=== PATIENT | male | born 1945 | race Caucasian/White ===

== ENCOUNTER 2022-03-05 10:39 | Observation (INO) | payer OTHER ==
[2022-03-05 11:34] LABS: HEMATOCRIT 32.7 % (35.4-49); HEMOGLOBIN 11.3 GM/dL (11.7-16.9); MCH 30.3 pg (25.7-33.7); MCHC 34.6 g/dl (32.0-35.9); MEAN CELL VOLUME 87.8 fl (80-96); MEAN PLT VOLUME 9.8 fl (7.5-11.1); PLATELET COUNT 196 10^3/uL (134-434); RBC 3.73 M/mm3 (4.00-5.60); RDW 13.3 % (11.9-15.9); WHITE BLOOD COUNT 10.5 K/mm3 (4.0-10.0)
[2022-03-05 11:42] LABS: VENOUS O2 SATURATION 42.3 % (70-80); VENOUS PCO2 45.8 mmHg (38-52); VENOUS PH 7.29 (7.310-7.410)
[2022-03-05 11:58] LABS: CHLORIDE 100 mmol/L (98-107); SODIUM 135 mmol/L (136-145)
[2022-03-05 12:06] LABS: CALCIUM 9.4 mg/dL (8.5-10.1)
[2022-03-05 12:07] LABS: ALBUMIN 3.3 g/dl (3.4-5.0); ANION GAP 11 MMOL/L (8-16); BLOOD UREA NITROGEN 23.8 mg/dL (7-18); CO2 25 mmol/L (21-32); LIPASE 454 U/L (73-393)
[2022-03-05 12:09] LABS: CREATININE 1.7 mg/dL (0.55-1.3); SGPT/ALT 11 U/L (13-61)
[2022-03-05 12:10] LABS: SGOT/AST 12 U/L (15-37)
[2022-03-05 12:12] LABS: ALK PHOS 85 U/L (45-117); BILIRUBIN,TOTAL 0.4 mg/dL (0.2-1)
[2022-03-05 12:18] LABS: GLUCOSE,RANDOM 428 mg/dL (74-106)
[2022-03-05 12:32] LABS: ANISOCYTOSIS 2+; MACROCYTOSIS 0
[2022-03-05] MEDS ORDERED: SODIUM CHLORIDE 0.9% 500 ML INFUS.BAG IV ONE (13:00)
[2022-03-05] MEDS ORDERED: INSULIN REGULAR HUMAN 100 UNITS/ML *VIAL SQ ONE (16:00)
[2022-03-05] MEDS ORDERED: INSULIN REGULAR HUMAN 100 UNITS/ML *VIAL ONE (16:10)
[2022-03-05] MEDS ORDERED: DOCUSATE SODIUM 100 MG CAPSULE (FP) PO PRN (20:18)
[2022-03-05] MEDS ORDERED: SENNOSIDES 8.6MG TABLET (FP) PO PRN (20:19)
[2022-03-05] MEDS ORDERED: ONDANSETRON 4 MG/2 ML VIAL IVPUSH PRN (20:31)
[2022-03-05 21:46] LABS: EPI CELLS 4 /uL (0-25.1); HYALINE CASTS 0 /uL (0-3.1); URINE APPEARANCE CLEAR; URINE BACTERIA 8 /uL (0-1359); URINE BILIRUBIN NEGATIVE (NEGATIVE); URINE COLOR YELLOW; URINE GLUCOSE (UA) 3+ (NEGATIVE); URINE KETONE NEGATIVE (NEGATIVE); URINE LEUK ESTERASE NEGATIVE (NEGATIVE); URINE NITRITE NEGATIVE (NEGATIVE); URINE PROTEIN 3+ (NEGATIVE); URINE RBC 11 /uL (0-23.9); URINE UROBILINOGEN 0.2 mg/dL (0.2-1.0); URINE WBC 6 /uL (0-25.8)
[2022-03-05] MEDS ORDERED: POLYETHYLENE GLYCOL 3350 119 GM BTL PO SCH (22:00)
[2022-03-05] MEDS ORDERED: LABETALOL HCL 200 MG TABLET (FP) PO ONE (22:07)
[2022-03-05] MEDS ORDERED: HEPARIN NA (PORCINE) 5,000 UNITS/ML 1ML VIAL ONE (22:11)
[2022-03-05] MEDS ORDERED: LABETALOL HCL 100 MG TABLET (FP) ONE (22:11)
[2022-03-05] MEDS: HEPARIN NA (PORCINE) 5,000 UNITS/ML 1ML VIAL SQ SCH (22:24)
[2022-03-05] MEDS: INSULIN (LEVEMIR) 100 UNITS/ML UNITS SQ SCH (22:24)
[2022-03-05] MEDS: INSULIN SLIDING SCALE (NOVOLOG) 1 VIAL SQ SCH (22:24)
[2022-03-06 01:27] VITALS: BMI 28.5
[2022-03-06] MEDS: INSULIN (LEVEMIR) 100 UNITS/ML UNITS SQ SCH ×2 (06:38→22:32)
[2022-03-06] MEDS: HEPARIN NA (PORCINE) 5,000 UNITS/ML 1ML VIAL SQ SCH ×3 (06:38→22:31)
[2022-03-06] MEDS: INSULIN SLIDING SCALE (NOVOLOG) 1 VIAL SQ SCH ×4 (06:39→22:47)
[2022-03-06 08:04] LABS: HEMATOCRIT 28.5 % (35.4-49); MCH 30.4 pg (25.7-33.7); MEAN PLT VOLUME 10.1 fl (7.5-11.1); PLATELET COUNT 193 10^3/uL (134-434); RBC 3.27 M/mm3 (4.00-5.60); RDW 13.7 % (11.9-15.9)
[2022-03-06] MEDS ORDERED: SODIUM CHLORIDE 0.9% 500 ML INFUS.BAG IV ONE (08:29)
[2022-03-06 08:34] LABS: CALCIUM 8.6 mg/dL (8.5-10.1)
[2022-03-06 08:36] LABS: BLOOD UREA NITROGEN 25.7 mg/dL (7-18); MAGNESIUM 1.9 mg/dL (1.8-2.4)
[2022-03-06 08:38] LABS: CREATININE 1.7 mg/dL (0.55-1.3); PHOSPHOROUS 4.1 mg/dL (2.5-4.9)
[2022-03-06 08:40] LABS: BILIRUBIN,TOTAL 0.3 mg/dL (0.2-1)
[2022-03-06] MEDS: LABETALOL HCL 200 MG TABLET (FP) PO SCH ×2 (10:40→22:31)
[2022-03-07] MEDS: HEPARIN NA (PORCINE) 5,000 UNITS/ML 1ML VIAL SQ SCH ×3 (06:39→22:17)
[2022-03-07] MEDS: INSULIN (LEVEMIR) 100 UNITS/ML UNITS SQ SCH ×2 (06:41→22:17)
[2022-03-07 07:12] LABS: HEMATOCRIT 28.1 % (35.4-49); HEMOGLOBIN 9.8 GM/dL (11.7-16.9); MCH 30.6 pg (25.7-33.7); MCHC 34.9 g/dl (32.0-35.9); MEAN CELL VOLUME 87.4 fl (80-96); MEAN PLT VOLUME 9.9 fl (7.5-11.1); PLATELET COUNT 194 10^3/uL (134-434); RBC 3.21 M/mm3 (4.00-5.60); RDW 13.6 % (11.9-15.9); WHITE BLOOD COUNT 5.3 K/mm3 (4.0-10.0)
[2022-03-07 07:25] LABS: CALCIUM 8.7 mg/dL (8.5-10.1)
[2022-03-07 07:27] LABS: BLOOD UREA NITROGEN 27.7 mg/dL (7-18); MAGNESIUM 2.1 mg/dL (1.8-2.4)
[2022-03-07 07:29] LABS: CREATININE 2.1 mg/dL (0.55-1.3); PHOSPHOROUS 4.3 mg/dL (2.5-4.9)
[2022-03-07] MEDS: INSULIN SLIDING SCALE (NOVOLOG) 1 VIAL SQ SCH ×4 (07:50→22:19)
[2022-03-07] MEDS: LABETALOL HCL 200 MG TABLET (FP) PO SCH ×2 (09:10→22:18)
[2022-03-08] MEDS: HEPARIN NA (PORCINE) 5,000 UNITS/ML 1ML VIAL SQ SCH ×3 (06:23→21:50)
[2022-03-08] MEDS: INSULIN (LEVEMIR) 100 UNITS/ML UNITS SQ SCH ×2 (06:23→21:49)
[2022-03-08] MEDS: INSULIN SLIDING SCALE (NOVOLOG) 1 VIAL SQ SCH ×4 (06:24→21:49)
[2022-03-08] MEDS: LABETALOL HCL 200 MG TABLET (FP) PO SCH ×2 (09:05→21:48)
[2022-03-08 12:56] LABS: BASO % 0.7 % (0-2.0); EOS % 3.5 % (0-4.5); HEMOGLOBIN 9.9 GM/dL (11.7-16.9); LYMPH % 15.4 % (8-40); MCH 30.4 pg (25.7-33.7); MCHC 34.3 g/dl (32.0-35.9); MEAN CELL VOLUME 88.5 fl (80-96); MEAN PLT VOLUME 10.3 fl (7.5-11.1); NEUT % 71.4 % (42.8-82.8); PLATELET COUNT 170 10^3/uL (134-434); RBC 3.27 M/mm3 (4.00-5.60); RDW 13.6 % (11.9-15.9); WHITE BLOOD COUNT 4.3 K/mm3 (4.0-10.0)
[2022-03-08 13:16] LABS: CALCIUM 8.4 mg/dL (8.5-10.1)
[2022-03-08 13:17] LABS: ALBUMIN 2.9 g/dl (3.4-5.0); BLOOD UREA NITROGEN 31.8 mg/dL (7-18)
[2022-03-08 13:22] LABS: BILIRUBIN,TOTAL 0.2 mg/dL (0.2-1)
[2022-03-09] MEDS: INSULIN SLIDING SCALE (NOVOLOG) 1 VIAL SQ SCH ×4 (06:12→22:25)
[2022-03-09] MEDS: INSULIN (LEVEMIR) 100 UNITS/ML UNITS SQ SCH ×2 (06:12→22:24)
[2022-03-09] MEDS: HEPARIN NA (PORCINE) 5,000 UNITS/ML 1ML VIAL SQ SCH ×3 (06:13→22:21)
[2022-03-09 07:53] LABS: BASO % 0.8 % (0-2.0); EOS % 4.2 % (0-4.5); HEMATOCRIT 27.9 % (35.4-49); HEMOGLOBIN 9.6 GM/dL (11.7-16.9); LYMPH % 16.7 % (8-40); MCH 30.1 pg (25.7-33.7); MCHC 34.5 g/dl (32.0-35.9); MEAN CELL VOLUME 87.3 fl (80-96); MEAN PLT VOLUME 10.2 fl (7.5-11.1); MONO % 10.2 % (3.8-10.2); NEUT % 68.1 % (42.8-82.8); PLATELET COUNT 169 10^3/uL (134-434); RDW 13.3 % (11.9-15.9); WHITE BLOOD COUNT 4.4 K/mm3 (4.0-10.0)
[2022-03-09 08:19] LABS: ALBUMIN 2.8 g/dl (3.4-5.0); CALCIUM 8.4 mg/dL (8.5-10.1)
[2022-03-09 08:23] LABS: TOT PROT 5.9 g/dl (6.4-8.2)
[2022-03-09 08:24] LABS: BILIRUBIN,TOTAL 0.2 mg/dL (0.2-1)
[2022-03-09] MEDS: LABETALOL HCL 200 MG TABLET (FP) PO SCH ×2 (10:30→22:22)
[2022-03-10] MEDS: HEPARIN NA (PORCINE) 5,000 UNITS/ML 1ML VIAL SQ SCH ×2 (06:15→13:41)
[2022-03-10] MEDS: INSULIN (LEVEMIR) 100 UNITS/ML UNITS SQ SCH (06:16)
[2022-03-10] MEDS: INSULIN SLIDING SCALE (NOVOLOG) 1 VIAL SQ SCH ×3 (06:42→17:37)
[2022-03-10 07:59] VITALS: TEMP 98.2
[2022-03-10] MEDS: LABETALOL HCL 200 MG TABLET (FP) PO SCH (09:27)
[2022-03-10 15:34] VITALS: BP 138/63; PULSE 66
== END 2022-03-10 19:03 | disposition home or self-care (01) ==
LOC: JER 10:39 → JERBED 17:02 → J4W 03-06 00:30
PROVIDERS: ADMIT Internal Medicine
PROC: 3E023GC Introduction of Other Therapeutic Substance into Muscle, Percutaneous Approach (ICD-10-PCS; principal; 2022-03-05)
PROC: 3E013VG Introduction of Insulin into Subcutaneous Tissue, Percutaneous Approach (ICD-10-PCS; 2022-03-05)
PROC: 3E0337Z Introduction of Electrolytic and Water Balance Substance into Peripheral Vein, Percutaneous Approach (ICD-10-PCS; 2022-03-05)
DX: E13.21 Other specified diabetes mellitus with diabetic nephropathy (principal); N18.9 Chronic kidney disease, unspecified; D64.9 Anemia, unspecified; R80.9 Proteinuria, unspecified; W18.39XA Other fall on same level, initial encounter; Y93.89 Activity, other specified; Y92.002 Bathroom of unspecified non-institutional (private) residence as the place of occurrence of the external cause; S09.90XA Unspecified injury of head, initial encounter; R79.9 Abnormal finding of blood chemistry, unspecified; R11.2 Nausea with vomiting, unspecified; R55 Syncope and collapse; Z29.8 Encounter for other specified prophylactic measures
CPT/HCPCS: 36415; 70450-TC; 70551-TC; 71045-TC-FY; 72125-TC; 72170-TC-FY; 80048; 80053; 81003; 82010; 82803; 82962; 83036; 83605; 83690; 83735; 84100; 84484; 85025; 85027; 87086; 93005; 93010; 96372; 97116-GP; 97161-GP; 99285-25; C9803-CS; G0378; J1644; U0003; U0005

== ENCOUNTER 2022-04-29 11:14 | Inpatient (IN) | payer OTHER ==
[2022-04-29] MEDS ORDERED: ALBUTEROL SO4 2.5/IPRATROPIUM 0.5 INH SOL 3 ML VIAL.NEB. NEB ONE ×2 (12:04→12:07)
[2022-04-29] MEDS ORDERED: MAGNESIUM SULF 50% (8.12 MEQ/2 ML-1 GM VIAL) IVPB ONE (12:05)
[2022-04-29] MEDS ORDERED: MAGNESIUM SULFATE IN WATER 2 GM/50 ML IVPB IVPB ONE (12:07)
[2022-04-29 13:11] LABS: HEMATOCRIT 24.3 % (35.4-49); HEMOGLOBIN 8.4 GM/dL (11.7-16.9); MCH 29.1 pg (25.7-33.7); MCHC 34.6 g/dl (32.0-35.9); MEAN CELL VOLUME 84.3 fl (80-96); MEAN PLT VOLUME 9.4 fl (7.5-11.1); PLATELET COUNT 250 10^3/uL (134-434); RBC 2.89 M/mm3 (4.00-5.60); RDW 13.7 % (11.9-15.9); WHITE BLOOD COUNT 11.7 K/mm3 (4.0-10.0)
[2022-04-29 13:31] LABS: CALCIUM 8.7 mg/dL (8.5-10.1)
[2022-04-29 13:32] LABS: BLOOD UREA NITROGEN 41.2 mg/dL (7-18)
[2022-04-29 13:35] LABS: CREATININE 2.4 mg/dL (0.55-1.3)
[2022-04-29 13:37] LABS: BILIRUBIN,TOTAL 0.4 mg/dL (0.2-1); TOT PROT 6.8 g/dl (6.4-8.2)
[2022-04-29 13:45] LABS: ANISOCYTOSIS 0; HELMET CELLS 0; HOWELL-JOLLY BODIES 0; MACROCYTOSIS 0; OVALOCYTE 0; ROULEAU 0; SICKELED CELLS 0; TARGET CELLS 0; TEAR DROP CELLS 0; TOXIC GRANULATION 0
[2022-04-29] MEDS ORDERED: SODIUM CHLORIDE 500 ML IV STA (14:12)
[2022-04-29] MEDS ORDERED: AZITHROMYCIN IVPB 500 MG in DEXTROSE 5%-WATER - 250 ML IVPB ONE (14:43)
[2022-04-29] MEDS ORDERED: CEFTRIAXONE 1,000 MG in DEXTROSE 5%-WATER - 50 ML IVPB ONE (14:43)
[2022-04-29] MEDS ORDERED: AZITHROMYCIN IVPB 500 MG/250 ML BAG IVPB ONE (16:13)
[2022-04-29] MEDS ORDERED: CEFTRIAXONE 1 GM/50 ML BAG ONE (16:13)
[2022-04-29] MEDS ORDERED: methylPREDNISolone NA SUCC 40 MG/1 ML VIAL ONE (16:13)
[2022-04-29 16:25] LABS: EPI CELLS 7 /uL (0-25.1); HYALINE CASTS 2 /uL (0-3.1); PH,URINE 5.5 (5.0-8.0); URINE APPEARANCE CLEAR; URINE BACTERIA 11 /uL (0-1359); URINE BILIRUBIN NEGATIVE (NEGATIVE); URINE COLOR YELLOW; URINE GLUCOSE (UA) TRACE (NEGATIVE); URINE KETONE NEGATIVE (NEGATIVE); URINE LEUK ESTERASE NEGATIVE (NEGATIVE); URINE NITRITE NEGATIVE (NEGATIVE); URINE PROTEIN 3+ (NEGATIVE); URINE RBC 17 /uL (0-23.9); URINE UROBILINOGEN 0.2 mg/dL (0.2-1.0); URINE WBC 5 /uL (0-25.8)
[2022-04-29] MEDS: methylPREDNISolone NA SUCC 125 MG/2 ML VIAL IVPUSH SCH ×2 (16:27→21:42)
[2022-04-29] MEDS ORDERED: ALBUTEROL SO4 2.5/IPRATROPIUM 0.5 INH SOL 3 ML VIAL.NEB. NEB PRN (16:27)
[2022-04-29] MEDS: INSULIN SLIDING SCALE (NOVOLOG) 1 VIAL SQ SCH ×2 (18:12→21:41)
[2022-04-29] MEDS: LABETALOL HCL 200 MG TABLET (FP) PO SCH (21:42)
[2022-04-29] MEDS: HEPARIN NA (PORCINE) 5,000 UNITS/ML 1ML VIAL SQ SCH (21:42)
[2022-04-30 02:38] VITALS: BMI 30.1
[2022-04-30] MEDS: methylPREDNISolone NA SUCC 125 MG/2 ML VIAL IVPUSH SCH ×2 (03:15→11:17)
[2022-04-30] MEDS: HEPARIN NA (PORCINE) 5,000 UNITS/ML 1ML VIAL SQ SCH ×3 (05:53→23:47)
[2022-04-30] MEDS: INSULIN SLIDING SCALE (NOVOLOG) 1 VIAL SQ SCH ×4 (06:01→23:46)
[2022-04-30] MEDS ORDERED: DEXTROSE 5%-WATER - 50 ML IVPB ONE (10:55)
[2022-04-30] MEDS ORDERED: cefTRIAXone SODIUM 1 GM VIAL ONE (10:55)
[2022-04-30 10:58] LABS: HEMATOCRIT 25.9 % (35.4-49); MCH 29.4 pg (25.7-33.7); MCHC 34.8 g/dl (32.0-35.9); MEAN CELL VOLUME 84.5 fl (80-96); MEAN PLT VOLUME 9.6 fl (7.5-11.1); PLATELET COUNT 254 10^3/uL (134-434); RBC 3.06 M/mm3 (4.00-5.60); RDW 13.8 % (11.9-15.9); WHITE BLOOD COUNT 10.4 K/mm3 (4.0-10.0)
[2022-04-30 11:06] LABS: INR 1.21 (0.83-1.09)
[2022-04-30 11:07] LABS: ACTIVATED PTT 27.7 SECONDS (25.2-36.5)
[2022-04-30] MEDS: CEFTRIAXONE 1 GM in DEXTROSE 5%-WATER - 50 ML IVPB SCH (11:17)
[2022-04-30] MEDS: amLODIPine BESYLATE 10 MG TABLET (FP) PO SCH (11:19)
[2022-04-30] MEDS: LABETALOL HCL 200 MG TABLET (FP) PO SCH ×2 (11:19→23:47)
[2022-04-30 11:24] LABS: CALCIUM 8.5 mg/dL (8.5-10.1)
[2022-04-30 11:25] LABS: BLOOD UREA NITROGEN 48.7 mg/dL (7-18); MAGNESIUM 2.9 mg/dL (1.8-2.4)
[2022-04-30 11:26] LABS: PHOSPHOROUS 4.3 mg/dL (2.5-4.9)
[2022-04-30 11:27] LABS: CREATININE 2.4 mg/dL (0.55-1.3); TOT PROT 7.1 g/dl (6.4-8.2)
[2022-04-30 11:28] LABS: BILIRUBIN,TOTAL 0.3 mg/dL (0.2-1)
[2022-04-30 13:07] LABS: ANISOCYTOSIS 2+; MACROCYTOSIS 1+
[2022-04-30] MEDS: AZITHROMYCIN IVPB 500 MG/250 ML BAG IVPB SCH (13:42)
[2022-04-30] MEDS ORDERED: Insulin (LOG) Aspart 100 UNITS/ML VIAL SQ ONE (13:45)
[2022-04-30] MEDS ORDERED: INSULIN (NOVOLOG) ASPART 100 UNITS/ML 10ML VIAL SQ ONE (18:13)
[2022-04-30] MEDS: methylPREDNISolone NA SUCC 40 MG/1 ML VIAL IVPUSH SCH ×2 (18:29→23:47)
[2022-04-30] MEDS: INSULIN (LEVEMIR) 100 UNITS/ML UNITS SQ SCH (23:47)
[2022-05-01] MEDS ORDERED: INSULIN (NOVOLOG) ASPART 100 UNITS/ML 10ML VIAL SQ ONE (01:52)
[2022-05-01] MEDS: methylPREDNISolone NA SUCC 40 MG/1 ML VIAL IVPUSH SCH (06:38)
[2022-05-01] MEDS: INSULIN (NOVOLOG) ASPART 100 UNITS/ML 10ML VIAL SQ SCH ×3 (06:38→18:08)
[2022-05-01] MEDS: HEPARIN NA (PORCINE) 5,000 UNITS/ML 1ML VIAL SQ SCH ×3 (06:38→23:52)
[2022-05-01] MEDS: INSULIN SLIDING SCALE (NOVOLOG) 1 VIAL SQ SCH ×4 (06:38→23:52)
[2022-05-01] MEDS ORDERED: INSULIN SLIDING SCALE (NOVOLOG) 1 VIAL SQ ONE (07:19)
[2022-05-01] MEDS ORDERED: INSULIN (LEVEMIR) 100 UNITS/ML UNITS SQ ONE (07:19)
[2022-05-01 11:07] LABS: HEMATOCRIT 23.1 % (35.4-49); HEMOGLOBIN 7.8 GM/dL (11.7-16.9); MCH 28.7 pg (25.7-33.7); MCHC 33.7 g/dl (32.0-35.9); MEAN CELL VOLUME 85.2 fl (80-96); PLATELET COUNT 266 10^3/uL (134-434); RBC 2.71 M/mm3 (4.00-5.60); RDW 13.6 % (11.9-15.9); WHITE BLOOD COUNT 14.1 K/mm3 (4.0-10.0)
[2022-05-01 11:25] LABS: ALBUMIN 2.9 g/dl (3.4-5.0); BLOOD UREA NITROGEN 70.2 mg/dL (7-18)
[2022-05-01 11:27] LABS: CREATININE 2.8 mg/dL (0.55-1.3)
[2022-05-01 11:29] LABS: BILIRUBIN,TOTAL 0.6 mg/dL (0.2-1); TOT PROT 6.9 g/dl (6.4-8.2)
[2022-05-01 11:58] LABS: ANISOCYTOSIS 0; MACROCYTOSIS 0
[2022-05-01] MEDS ORDERED: DEXTROSE 5%-WATER - 50 ML IVPB ONE (12:23)
[2022-05-01] MEDS ORDERED: cefTRIAXone SODIUM 1 GM VIAL ONE (12:23)
[2022-05-01] MEDS: CEFTRIAXONE 1 GM in DEXTROSE 5%-WATER - 50 ML IVPB SCH (12:42)
[2022-05-01] MEDS: LABETALOL HCL 200 MG TABLET (FP) PO SCH ×2 (12:42→23:52)
[2022-05-01] MEDS: amLODIPine BESYLATE 10 MG TABLET (FP) PO SCH (12:42)
[2022-05-01] MEDS: AZITHROMYCIN IVPB 500 MG/250 ML BAG IVPB SCH (15:57)
[2022-05-01] MEDS: INSULIN (LEVEMIR) 100 UNITS/ML UNITS SQ SCH (23:52)
[2022-05-02] MEDS: HEPARIN NA (PORCINE) 5,000 UNITS/ML 1ML VIAL SQ SCH ×3 (06:31→21:28)
[2022-05-02] MEDS: INSULIN SLIDING SCALE (NOVOLOG) 1 VIAL SQ SCH ×4 (06:36→21:30)
[2022-05-02] MEDS: INSULIN (NOVOLOG) ASPART 100 UNITS/ML 10ML VIAL SQ SCH ×2 (06:40→17:55)
[2022-05-02 08:30] LABS: HEMATOCRIT 22.9 % (35.4-49); HEMOGLOBIN 7.7 GM/dL (11.7-16.9); MCH 28.3 pg (25.7-33.7); MCHC 33.6 g/dl (32.0-35.9); MEAN CELL VOLUME 84.4 fl (80-96); MEAN PLT VOLUME 9.4 fl (7.5-11.1); PLATELET COUNT 269 10^3/uL (134-434); RBC 2.71 M/mm3 (4.00-5.60); RDW 13.9 % (11.9-15.9); WHITE BLOOD COUNT 11.3 K/mm3 (4.0-10.0)
[2022-05-02 08:53] LABS: ALBUMIN 2.9 g/dl (3.4-5.0); CALCIUM 8.1 mg/dL (8.5-10.1)
[2022-05-02 08:55] LABS: ALBUMIN 2.9 g/dl (3.4-5.0); BLOOD UREA NITROGEN 77.7 mg/dL (7-18)
[2022-05-02 08:56] LABS: BILIRUBIN,DIRECT 0.1 mg/dL (0.0-0.2)
[2022-05-02 08:58] LABS: BILIRUBIN,TOTAL 0.2 mg/dL (0.2-1); TOT PROT 6.8 g/dl (6.4-8.2)
[2022-05-02 08:59] LABS: BILIRUBIN,TOTAL 0.2 mg/dL (0.2-1); TOT PROT 6.8 g/dl (6.4-8.2)
[2022-05-02] MEDS ORDERED: DEXTROSE 5%-WATER - 50 ML IVPB ONE (09:23)
[2022-05-02] MEDS ORDERED: cefTRIAXone SODIUM 1 GM VIAL ONE (09:23)
[2022-05-02] MEDS: CEFTRIAXONE 1 GM in DEXTROSE 5%-WATER - 50 ML IVPB SCH (09:58)
[2022-05-02] MEDS: LABETALOL HCL 200 MG TABLET (FP) PO SCH ×2 (09:59→21:27)
[2022-05-02] MEDS: amLODIPine BESYLATE 10 MG TABLET (FP) PO SCH (09:59)
[2022-05-02] MEDS ORDERED: predniSONE 20 MG TABLET (UD) PO SCH (10:00)
[2022-05-02] MEDS: AZITHROMYCIN IVPB 500 MG/250 ML BAG IVPB SCH (10:01)
[2022-05-02 10:28] LABS: ANISOCYTOSIS 0; HELMET CELLS 0; HOWELL-JOLLY BODIES 0; MACROCYTOSIS 0; OVALOCYTE 0; ROULEAU 0; SICKELED CELLS 0; TARGET CELLS 0; TEAR DROP CELLS 0; TOXIC GRANULATION 0
[2022-05-02] MEDS ORDERED: SODIUM CHLORIDE 0.45% 1,000 ML IV SCH (10:45)
[2022-05-02] MEDS: PANTOPRAZOLE 40 MG TABLET PO SCH (11:27)
[2022-05-02] MEDS: INSULIN (LEVEMIR) 100 UNITS/ML UNITS SQ SCH (21:29)
[2022-05-03] MEDS: HEPARIN NA (PORCINE) 5,000 UNITS/ML 1ML VIAL SQ SCH ×3 (06:14→22:55)
[2022-05-03] MEDS: INSULIN (NOVOLOG) ASPART 100 UNITS/ML 10ML VIAL SQ SCH ×2 (06:16→16:59)
[2022-05-03] MEDS: INSULIN SLIDING SCALE (NOVOLOG) 1 VIAL SQ SCH ×4 (06:17→22:54)
[2022-05-03 08:54] LABS: HEMATOCRIT 25.3 % (35.4-49); HEMOGLOBIN 8.6 GM/dL (11.7-16.9); MCH 28.6 pg (25.7-33.7); MCHC 33.8 g/dl (32.0-35.9); MEAN CELL VOLUME 84.7 fl (80-96); MEAN PLT VOLUME 9.5 fl (7.5-11.1); PLATELET COUNT 306 10^3/uL (134-434); RBC 2.99 M/mm3 (4.00-5.60); WHITE BLOOD COUNT 10.5 K/mm3 (4.0-10.0)
[2022-05-03 09:10] LABS: CALCIUM 8.6 mg/dL (8.5-10.1)
[2022-05-03 09:11] LABS: ALBUMIN 3.2 g/dl (3.4-5.0)
[2022-05-03 09:14] LABS: CREATININE 2.7 mg/dL (0.55-1.3)
[2022-05-03 09:16] LABS: BILIRUBIN,TOTAL 0.2 mg/dL (0.2-1)
[2022-05-03] MEDS ORDERED: cefTRIAXone SODIUM 1 GM VIAL ONE (09:47)
[2022-05-03] MEDS ORDERED: DEXTROSE 5%-WATER - 50 ML IVPB ONE (09:47)
[2022-05-03] MEDS: CEFTRIAXONE 1 GM in DEXTROSE 5%-WATER - 50 ML IVPB SCH (09:56)
[2022-05-03] MEDS: amLODIPine BESYLATE 10 MG TABLET (FP) PO SCH (09:57)
[2022-05-03] MEDS: LABETALOL HCL 200 MG TABLET (FP) PO SCH ×2 (09:57→22:48)
[2022-05-03] MEDS: predniSONE 20 MG TABLET (UD) PO SCH (09:57)
[2022-05-03] MEDS: PANTOPRAZOLE 40 MG TABLET PO SCH (09:58)
[2022-05-03] MEDS: AZITHROMYCIN IVPB 500 MG/250 ML BAG IVPB SCH (09:59)
[2022-05-03 10:37] LABS: ANISOCYTOSIS 0; HELMET CELLS 0; HOWELL-JOLLY BODIES 0; MACROCYTOSIS 0; OVALOCYTE 0; ROULEAU 0; SICKELED CELLS 0; TARGET CELLS 0; TEAR DROP CELLS 0; TOXIC GRANULATION 0
[2022-05-03] MEDS: INSULIN (LEVEMIR) 100 UNITS/ML UNITS SQ SCH (22:55)
[2022-05-04] MEDS: HEPARIN NA (PORCINE) 5,000 UNITS/ML 1ML VIAL SQ SCH ×3 (06:38→22:12)
[2022-05-04] MEDS: INSULIN SLIDING SCALE (NOVOLOG) 1 VIAL SQ SCH ×4 (06:40→22:11)
[2022-05-04] MEDS: INSULIN (NOVOLOG) ASPART 100 UNITS/ML 10ML VIAL SQ SCH ×2 (06:40→17:55)
[2022-05-04] MEDS ORDERED: DEXTROSE 5%-WATER - 50 ML IVPB ONE (10:32)
[2022-05-04] MEDS ORDERED: cefTRIAXone SODIUM 1 GM VIAL ONE (10:32)
[2022-05-04] MEDS: predniSONE 20 MG TABLET (UD) PO SCH (10:39)
[2022-05-04] MEDS: amLODIPine BESYLATE 10 MG TABLET (FP) PO SCH (10:39)
[2022-05-04] MEDS: LABETALOL HCL 200 MG TABLET (FP) PO SCH ×2 (10:39→22:11)
[2022-05-04] MEDS: CEFTRIAXONE 1 GM in DEXTROSE 5%-WATER - 50 ML IVPB SCH (10:39)
[2022-05-04] MEDS: PANTOPRAZOLE 40 MG TABLET PO SCH (10:39)
[2022-05-04] MEDS: INSULIN (LEVEMIR) 100 UNITS/ML UNITS SQ SCH (22:12)
[2022-05-05] MEDS: HEPARIN NA (PORCINE) 5,000 UNITS/ML 1ML VIAL SQ SCH ×3 (06:45→22:19)
[2022-05-05] MEDS: INSULIN (NOVOLOG) ASPART 100 UNITS/ML 10ML VIAL SQ SCH ×2 (06:46→17:12)
[2022-05-05] MEDS: INSULIN SLIDING SCALE (NOVOLOG) 1 VIAL SQ SCH ×4 (06:46→22:19)
[2022-05-05 09:29] LABS: HEMATOCRIT 25.6 % (35.4-49); HEMOGLOBIN 8.7 GM/dL (11.7-16.9); MCH 28.6 pg (25.7-33.7); MEAN CELL VOLUME 83.9 fl (80-96); MEAN PLT VOLUME 9.6 fl (7.5-11.1); PLATELET COUNT 366 10^3/uL (134-434); RBC 3.05 M/mm3 (4.00-5.60); RDW 14.2 % (11.9-15.9); WHITE BLOOD COUNT 11.5 K/mm3 (4.0-10.0)
[2022-05-05 10:01] LABS: BLOOD UREA NITROGEN 52.6 mg/dL (7-18)
[2022-05-05 10:04] LABS: CREATININE 2.2 mg/dL (0.55-1.3)
[2022-05-05] MEDS ORDERED: cefTRIAXone SODIUM 1 GM VIAL ONE (10:21)
[2022-05-05] MEDS ORDERED: DEXTROSE 5%-WATER - 50 ML IVPB ONE (10:21)
[2022-05-05 10:34] LABS: ANISOCYTOSIS 0; MACROCYTOSIS 0
[2022-05-05 10:35] LABS: HELMET CELLS 0; HOWELL-JOLLY BODIES 0; OVALOCYTE 0; ROULEAU 0; SICKELED CELLS 0; TARGET CELLS 0; TEAR DROP CELLS 0; TOXIC GRANULATION 0
[2022-05-05] MEDS: LABETALOL HCL 200 MG TABLET (FP) PO SCH ×2 (10:38→22:18)
[2022-05-05] MEDS: PANTOPRAZOLE 40 MG TABLET PO SCH (10:38)
[2022-05-05] MEDS: amLODIPine BESYLATE 10 MG TABLET (FP) PO SCH (10:39)
[2022-05-05] MEDS: predniSONE 20 MG TABLET (UD) PO SCH (10:39)
[2022-05-05] MEDS: CEFTRIAXONE 1 GM in DEXTROSE 5%-WATER - 50 ML IVPB SCH (10:39)
[2022-05-05] MEDS: INSULIN (LEVEMIR) 100 UNITS/ML UNITS SQ SCH (22:17)
[2022-05-06] MEDS: HEPARIN NA (PORCINE) 5,000 UNITS/ML 1ML VIAL SQ SCH ×3 (05:52→21:56)
[2022-05-06] MEDS: INSULIN SLIDING SCALE (NOVOLOG) 1 VIAL SQ SCH ×4 (06:40→21:57)
[2022-05-06] MEDS: INSULIN (NOVOLOG) ASPART 100 UNITS/ML 10ML VIAL SQ SCH ×2 (06:40→17:46)
[2022-05-06] MEDS ORDERED: cefTRIAXone SODIUM 1 GM VIAL ONE (09:26)
[2022-05-06] MEDS ORDERED: DEXTROSE 5%-WATER - 50 ML IVPB ONE (09:26)
[2022-05-06] MEDS: amLODIPine BESYLATE 10 MG TABLET (FP) PO SCH (09:28)
[2022-05-06] MEDS: LABETALOL HCL 200 MG TABLET (FP) PO SCH ×2 (09:28→21:56)
[2022-05-06] MEDS: CEFTRIAXONE 1 GM in DEXTROSE 5%-WATER - 50 ML IVPB SCH (09:28)
[2022-05-06] MEDS: PANTOPRAZOLE 40 MG TABLET PO SCH (09:28)
[2022-05-06] MEDS: predniSONE 20 MG TABLET (UD) PO SCH (09:28)
[2022-05-06] MEDS: INSULIN (LEVEMIR) 100 UNITS/ML UNITS SQ SCH (21:56)
[2022-05-07] MEDS: HEPARIN NA (PORCINE) 5,000 UNITS/ML 1ML VIAL SQ SCH ×2 (06:10→14:50)
[2022-05-07] MEDS: INSULIN SLIDING SCALE (NOVOLOG) 1 VIAL SQ SCH ×3 (06:11→17:56)
[2022-05-07 06:30] VITALS: TEMP 98.3
[2022-05-07] MEDS: INSULIN (NOVOLOG) ASPART 100 UNITS/ML 10ML VIAL SQ SCH ×2 (07:38→17:56)
[2022-05-07 09:01] LABS: BASO % 0.2 % (0-2.0); EOS % 1.5 % (0-4.5); HEMATOCRIT 26.1 % (35.4-49); LYMPH % 5.9 % (8-40); MCH 28.9 pg (25.7-33.7); MCHC 34.4 g/dl (32.0-35.9); MEAN CELL VOLUME 84.1 fl (80-96); MEAN PLT VOLUME 9.6 fl (7.5-11.1); MONO % 7.8 % (3.8-10.2); NEUT % 84.6 % (42.8-82.8); PLATELET COUNT 306 10^3/uL (134-434); RBC 3.11 M/mm3 (4.00-5.60); RDW 14.4 % (11.9-15.9); WHITE BLOOD COUNT 9.3 K/mm3 (4.0-10.0)
[2022-05-07] MEDS ORDERED: cefTRIAXone SODIUM 1 GM VIAL ONE (09:02)
[2022-05-07] MEDS ORDERED: DEXTROSE 5%-WATER - 50 ML IVPB ONE (09:02)
[2022-05-07 09:11] LABS: CALCIUM 8.9 mg/dL (8.5-10.1)
[2022-05-07 09:12] LABS: BLOOD UREA NITROGEN 46.2 mg/dL (7-18)
[2022-05-07 09:15] LABS: CREATININE 2.1 mg/dL (0.55-1.3)
[2022-05-07 09:16] LABS: TOT PROT 6.5 g/dl (6.4-8.2)
[2022-05-07 09:17] LABS: BILIRUBIN,TOTAL 0.2 mg/dL (0.2-1)
[2022-05-07] MEDS: LABETALOL HCL 200 MG TABLET (FP) PO SCH (09:30)
[2022-05-07] MEDS: CEFTRIAXONE 1 GM in DEXTROSE 5%-WATER - 50 ML IVPB SCH (09:30)
[2022-05-07] MEDS: predniSONE 20 MG TABLET (UD) PO SCH (09:30)
[2022-05-07] MEDS: PANTOPRAZOLE 40 MG TABLET PO SCH (09:30)
[2022-05-07] MEDS: amLODIPine BESYLATE 10 MG TABLET (FP) PO SCH (09:30)
[2022-05-07 13:59] VITALS: BP 100/58; PULSE 60
[2022-05-08] MEDS ORDERED: predniSONE 20 MG TABLET (UD) PO SCH (10:00)
== END 2022-05-07 17:44 | disposition home or self-care (01) | DRG 194 ==
LOC: JER 11:14 → JERBED 14:53 → J5S 18:38 → UNDODISIN 05-07 16:23
PROVIDERS: ADMIT Internal Medicine
DX: J18.9 Pneumonia, unspecified organism (principal); N17.9 Acute kidney failure, unspecified; J45.901 Unspecified asthma with (acute) exacerbation; J90 Pleural effusion, not elsewhere classified; I12.9 Hypertensive chronic kidney disease with stage 1 through stage 4 chronic kidney disease, or unspecified chronic kidney disease; E11.22 Type 2 diabetes mellitus with diabetic chronic kidney disease; N18.9 Chronic kidney disease, unspecified; D72.829 Elevated white blood cell count, unspecified; D64.9 Anemia, unspecified; E11.65 Type 2 diabetes mellitus with hyperglycemia; Z79.52 Long term (current) use of systemic steroids
CPT/HCPCS: 0241U-QW; 36415; 71045-TC-FY; 71250-TC; 80048; 80053; 80076; 81003; 82272; 82607; 82728; 82746; 82962; 83540; 83550; 83735; 84100; 84484; 85025; 85610; 85730; 86140; 87040; 87086; 87899; 93005; 93010; 93306-TC; 94761; 97116-GP; 97162-GP; 99285-25; J1644

== ENCOUNTER 2022-11-02 13:41 | Inpatient (IN) | payer OTHER ==
[2022-11-02] MEDS ORDERED: FAMOTIDINE 20 MG/50 ML IVPB 20 MG/50 ML MG IVPB ONE ×2 (14:36→15:20)
[2022-11-02] MEDS ORDERED: SODIUM CHLORIDE 0.9% 500 ML INFUS.BAG IV ONE (14:36)
[2022-11-02 15:54] LABS: BASO % 0.9 % (0-2.0); EOS % 2.1 % (0-4.5); HEMATOCRIT 24.3 % (35.4-49); HEMOGLOBIN 7.6 GM/dL (11.7-16.9); LYMPH % 2.3 % (8-40); MCH 24.9 pg (25.7-33.7); MCHC 31.4 g/dl (32.0-35.9); MEAN CELL VOLUME 79.3 fl (80-96); MEAN PLT VOLUME 9.4 fl (7.5-11.1); MONO % 6.4 % (3.8-10.2); NEUT % 88.3 % (42.8-82.8); PLATELET COUNT 385 10^3/uL (134-434); RBC 3.07 M/mm3 (4.00-5.60); RDW 15.6 % (11.9-15.9); WHITE BLOOD COUNT 19.7 K/mm3 (4.0-10.0)
[2022-11-02 15:55] LABS: VENOUS BASE EXCESS -4.3 mmol/L (-2-2); VENOUS O2 SATURATION 51.6 % (70-80); VENOUS PCO2 45.3 mmHg (38-52); VENOUS PH 7.3 (7.310-7.410)
[2022-11-02 16:17] LABS: CALCIUM 8.8 mg/dL (8.5-10.1)
[2022-11-02 16:18] LABS: ALBUMIN 2.4 g/dl (3.4-5.0); BLOOD UREA NITROGEN 63.8 mg/dL (7-18); MAGNESIUM 2.2 mg/dL (1.8-2.4)
[2022-11-02 16:20] LABS: CREATININE 3.2 mg/dL (0.55-1.3)
[2022-11-02 16:22] LABS: BILIRUBIN,TOTAL 0.3 mg/dL (0.2-1); TOT PROT 6.8 g/dl (6.4-8.2)
[2022-11-02] MEDS ORDERED: POTASSIUM CHLORIDE TABS 20 MEQ TABLET.ER (FP) PO ONE ×2 (16:30→16:49)
[2022-11-02] MEDS ORDERED: PIPERACILLIN/TAZOB 4.5 GM 4.5 GM in DEXTROSE 5%-WATER 100 ML IVPB ONE (18:46)
[2022-11-02] MEDS ORDERED: PIPERACILLIN/TAZOB 4.5 GM 4.5 GM/100 ML BAG IVPB ONE (18:51)
[2022-11-02 21:53] LABS: EPI CELLS 27 /uL (0-25.1); HYALINE CASTS 1 /uL (0-3.1); PH,URINE 5.5 (5.0-8.0); URINE APPEARANCE CLOUDY; URINE BACTERIA 6 /uL (0-1359); URINE BILIRUBIN NEGATIVE (NEGATIVE); URINE COLOR YELLOW; URINE GLUCOSE (UA) NEGATIVE (NEGATIVE); URINE KETONE NEGATIVE (NEGATIVE); URINE LEUK ESTERASE NEGATIVE (NEGATIVE); URINE NITRITE NEGATIVE (NEGATIVE); URINE PROTEIN 3+ (NEGATIVE); URINE RBC 8 /uL (0-23.9); URINE UROBILINOGEN 0.2 mg/dL (0.2-1.0); URINE WBC 22 /uL (0-25.8)
[2022-11-03 01:42] VITALS: BMI 28.8
[2022-11-03] MEDS ORDERED: LABETALOL HCL 5 MG/1 ML (100MG/20 ML VIAL) IVPUSH ONE (08:16)
[2022-11-03] MEDS ORDERED: SODIUM CHLORIDE 1,000 ML IV SCH ×3 (08:45→17:21)
[2022-11-03 09:16] LABS: HEMATOCRIT 24.8 % (35.4-49); HEMOGLOBIN 8.1 GM/dL (11.7-16.9); MCH 25.5 pg (25.7-33.7); MCHC 32.4 g/dl (32.0-35.9); MEAN CELL VOLUME 78.5 fl (80-96); MEAN PLT VOLUME 9.2 fl (7.5-11.1); PLATELET COUNT 406 10^3/uL (134-434); RBC 3.16 M/mm3 (4.00-5.60); RDW 16.2 % (11.9-15.9); WHITE BLOOD COUNT 19.6 K/mm3 (4.0-10.0)
[2022-11-03 09:23] LABS: INR 1.31 (0.83-1.09); PROTHROMBIN TIME (PATIENT) 15.1 SEC (9.7-13.0)
[2022-11-03 09:41] LABS: CALCIUM 8.6 mg/dL (8.5-10.1)
[2022-11-03 09:42] LABS: ALBUMIN 2.2 g/dl (3.4-5.0); BLOOD UREA NITROGEN 49.1 mg/dL (7-18); MAGNESIUM 2.1 mg/dL (1.8-2.4)
[2022-11-03 09:45] LABS: BILIRUBIN,DIRECT 0.1 mg/dL (0.0-0.2); CREATININE 2.7 mg/dL (0.55-1.3); PHOSPHOROUS 3.5 mg/dL (2.5-4.9)
[2022-11-03 09:47] LABS: BILIRUBIN,TOTAL 0.4 mg/dL (0.2-1); TOT PROT 6.3 g/dl (6.4-8.2)
[2022-11-03] MEDS ORDERED: FENTANYL CITRATE/PF 50 MCG/ML VIAL ONE (09:56)
[2022-11-03] MEDS ORDERED: MIDAZOLAM HCL 2 MG/2 ML SINGLE DOSE VIAL ONE (09:56)
[2022-11-03] MEDS ORDERED: PIPERACILLIN/TAZOB 2.25 GM 2.25 GM in DEXTROSE 5%-WATER - 50 ML IVPB SCH ×2 (10:00→18:00)
[2022-11-03] MEDS ORDERED: MUPIROCIN 2% TOPICAL OINTMENT FOR DECOLONIZATION NS SCH ×2 (10:00→22:00)
[2022-11-03] MEDS: INSULIN SLIDING SCALE (NOVOLOG) 1 VIAL SQ SCH ×3 (10:10→21:41)
[2022-11-03] MEDS ORDERED: ALBUTEROL SO4 HFA INHALER IH PRN (16:31)
[2022-11-03] MEDS: PIPERACILLIN/TAZOB 2.25 GM 2.25 GM in DEXTROSE 5%-WATER - 50 ML IVPB SCH (18:27)
[2022-11-03] MEDS: HEPARIN NA (PORCINE) 5,000 UNITS/ML 1ML VIAL SQ SCH (21:38)
[2022-11-03] MEDS ORDERED: CHLORHEXIDINE GLUCONATE 4% CLEANSER FOR DECOLONIZATION TP SCH ×2 (22:00)
[2022-11-04] MEDS: PIPERACILLIN/TAZOB 2.25 GM 2.25 GM in DEXTROSE 5%-WATER - 50 ML IVPB SCH ×3 (01:11→17:33)
[2022-11-04] MEDS: INSULIN SLIDING SCALE (NOVOLOG) 1 VIAL SQ SCH ×4 (06:27→22:20)
[2022-11-04] MEDS: HEPARIN NA (PORCINE) 5,000 UNITS/ML 1ML VIAL SQ SCH (09:56)
[2022-11-04 12:01] LABS: HEMATOCRIT 23.5 % (35.4-49); HEMOGLOBIN 7.5 GM/dL (11.7-16.9); MCH 25.2 pg (25.7-33.7); MCHC 31.7 g/dl (32.0-35.9); MEAN CELL VOLUME 79.4 fl (80-96); MEAN PLT VOLUME 8.9 fl (7.5-11.1); PLATELET COUNT 427 10^3/uL (134-434); RBC 2.96 M/mm3 (4.00-5.60); RDW 15.9 % (11.9-15.9); WHITE BLOOD COUNT 14.9 K/mm3 (4.0-10.0)
[2022-11-04 12:28] LABS: CALCIUM 8.6 mg/dL (8.5-10.1)
[2022-11-04 12:29] LABS: ALBUMIN 2.1 g/dl (3.4-5.0); BLOOD UREA NITROGEN 31.5 mg/dL (7-18); MAGNESIUM 2.1 mg/dL (1.8-2.4)
[2022-11-04 12:33] LABS: CREATININE 2.2 mg/dL (0.55-1.3); PHOSPHOROUS 3.3 mg/dL (2.5-4.9)
[2022-11-04 12:34] LABS: BILIRUBIN,TOTAL 0.4 mg/dL (0.2-1); TOT PROT 6.1 g/dl (6.4-8.2)
[2022-11-04] MEDS ORDERED: LACTATED RINGERS SOLUTION 1,000 ML/1,000 ML INFUS.BAG IV SCH (17:30)
[2022-11-04] MEDS: amLODIPine BESYLATE 5 MG TABLET (FP) PO SCH (17:31)
[2022-11-04] MEDS ORDERED: PIPERACILLIN/TAZOB 2.25 GM 2.25 GM in DEXTROSE 5%-WATER - 50 ML IVPB SCH (18:00)
[2022-11-04] MEDS: LABETALOL HCL 200 MG TABLET (FP) PO SCH (22:04)
[2022-11-05] MEDS: PIPERACILLIN/TAZOB 2.25 GM 2.25 GM in DEXTROSE 5%-WATER - 50 ML IVPB SCH ×3 (01:14→17:24)
[2022-11-05] MEDS: INSULIN SLIDING SCALE (NOVOLOG) 1 VIAL SQ SCH ×4 (07:11→21:37)
[2022-11-05] MEDS: LABETALOL HCL 200 MG TABLET (FP) PO SCH ×2 (09:09→21:33)
[2022-11-05] MEDS: amLODIPine BESYLATE 5 MG TABLET (FP) PO SCH (09:09)
[2022-11-05] MEDS ORDERED: BUPIVACAINE HCL/PF 0.5% (5MG/ML) 10 ML VIAL ONE (10:14)
[2022-11-05] MEDS ORDERED: LIDOCAINE HCL 1%, 10 MG/ML (20ML VIAL) ONE (10:14)
[2022-11-05] MEDS ORDERED: LIDOCAINE HCL/PF 1% SDV 5ML VIAL ONE (10:15)
[2022-11-05] MEDS ORDERED: FENTANYL CITRATE/PF 50 MCG/ML VIAL ONE ×3 (10:55→12:27)
[2022-11-05] MEDS ORDERED: LIDOCAINE HCL/PF 2% SDV 5ML VIAL ONE (10:55)
[2022-11-05] MEDS ORDERED: PROPOFOL 20 ML ONE (10:56)
[2022-11-05] MEDS ORDERED: ONDANSETRON 4 MG/2 ML VIAL ONE (11:33)
[2022-11-05] MEDS ORDERED: INSULIN (NOVOLOG) ASPART 100 UNITS/ML 10ML VIAL ONE (11:43)
[2022-11-05] MEDS ORDERED: ONDANSETRON 4 MG/2 ML VIAL IVPUSH PRN ×2 (11:54→13:25)
[2022-11-05] MEDS ORDERED: LACTATED RINGERS SOLUTION 1,000 ML IV SCH (12:00)
[2022-11-05] MEDS ORDERED: ALBUTEROL SO4 HFA INHALER IH PRN (13:25)
[2022-11-05] MEDS: LACTATED RINGERS SOLUTION 1,000 ML IV SCH (15:04)
[2022-11-05 16:31] LABS: BASO % 0.4 % (0-2.0); LYMPH % 4.1 % (8-40); MCH 24.6 pg (25.7-33.7); MCHC 30.6 g/dl (32.0-35.9); MEAN CELL VOLUME 80.2 fl (80-96); MEAN PLT VOLUME 9.1 fl (7.5-11.1); MONO % 6.2 % (3.8-10.2); NEUT % 88.3 % (42.8-82.8); PLATELET COUNT 397 10^3/uL (134-434); RBC 2.87 M/mm3 (4.00-5.60); RDW 15.6 % (11.9-15.9); WHITE BLOOD COUNT 11.7 K/mm3 (4.0-10.0)
[2022-11-05 16:53] LABS: CALCIUM 8.2 mg/dL (8.5-10.1)
[2022-11-05 16:54] LABS: BLOOD UREA NITROGEN 30.1 mg/dL (7-18); MAGNESIUM 1.9 mg/dL (1.8-2.4)
[2022-11-05 16:56] LABS: BILIRUBIN,DIRECT 0.1 mg/dL (0.0-0.2); CREATININE 2.3 mg/dL (0.55-1.3)
[2022-11-05 16:58] LABS: BILIRUBIN,TOTAL 0.4 mg/dL (0.2-1); PHOSPHOROUS 4.3 mg/dL (2.5-4.9); TOT PROT 5.8 g/dl (6.4-8.2)
[2022-11-05] MEDS ORDERED: PIPERACILLIN/TAZOB 2.25 GM 2.25 GM in DEXTROSE 5%-WATER - 50 ML IVPB SCH (18:00)
[2022-11-05] MEDS: HEPARIN NA (PORCINE) 5,000 UNITS/ML 1ML VIAL SQ SCH (21:33)
[2022-11-06] MEDS: PIPERACILLIN/TAZOB 2.25 GM 2.25 GM in DEXTROSE 5%-WATER - 50 ML IVPB SCH ×3 (01:19→18:31)
[2022-11-06] MEDS: INSULIN SLIDING SCALE (NOVOLOG) 1 VIAL SQ SCH ×3 (06:11→17:43)
[2022-11-06] MEDS: LACTATED RINGERS SOLUTION 1,000 ML IV SCH ×2 (06:22→17:43)
[2022-11-06] MEDS: HEPARIN NA (PORCINE) 5,000 UNITS/ML 1ML VIAL SQ SCH (10:38)
[2022-11-06] MEDS: LABETALOL HCL 200 MG TABLET (FP) PO SCH (10:38)
[2022-11-06] MEDS: amLODIPine BESYLATE 5 MG TABLET (FP) PO SCH (10:39)
[2022-11-06 11:33] LABS: HEMATOCRIT 21.5 % (35.4-49); MCH 25.4 pg (25.7-33.7); MCHC 31.9 g/dl (32.0-35.9); MEAN CELL VOLUME 79.8 fl (80-96); MEAN PLT VOLUME 9.1 fl (7.5-11.1); PLATELET COUNT 368 10^3/uL (134-434); RBC 2.69 M/mm3 (4.00-5.60); WHITE BLOOD COUNT 9.7 K/mm3 (4.0-10.0)
[2022-11-06 11:44] LABS: HEMOGLOBIN 6.8 GM/dL (11.7-16.9)
[2022-11-06 12:04] LABS: BLOOD UREA NITROGEN 29.1 mg/dL (7-18)
[2022-11-06 12:07] LABS: CREATININE 2.5 mg/dL (0.55-1.3)
[2022-11-06 12:09] LABS: BILIRUBIN,TOTAL 0.2 mg/dL (0.2-1); TOT PROT 5.6 g/dl (6.4-8.2)
[2022-11-07] MEDS: LABETALOL HCL 200 MG TABLET (FP) PO SCH ×2 (00:26→10:51)
[2022-11-07] MEDS: HEPARIN NA (PORCINE) 5,000 UNITS/ML 1ML VIAL SQ SCH ×3 (00:26→22:05)
[2022-11-07] MEDS: INSULIN SLIDING SCALE (NOVOLOG) 1 VIAL SQ SCH ×5 (00:31→22:57)
[2022-11-07] MEDS: PIPERACILLIN/TAZOB 2.25 GM 2.25 GM in DEXTROSE 5%-WATER - 50 ML IVPB SCH ×2 (01:38→10:52)
[2022-11-07 09:45] LABS: HEMATOCRIT 26.7 % (35.4-49); HEMOGLOBIN 8.8 GM/dL (11.7-16.9); MCH 26.2 pg (25.7-33.7); MCHC 32.9 g/dl (32.0-35.9); MEAN CELL VOLUME 79.7 fl (80-96); MEAN PLT VOLUME 8.8 fl (7.5-11.1); PLATELET COUNT 300 10^3/uL (134-434); RBC 3.35 M/mm3 (4.00-5.60); RDW 15.6 % (11.9-15.9); WHITE BLOOD COUNT 7.4 K/mm3 (4.0-10.0)
[2022-11-07 10:17] LABS: CALCIUM 8.1 mg/dL (8.5-10.1)
[2022-11-07 10:18] LABS: ALBUMIN 2.1 g/dl (3.4-5.0)
[2022-11-07 10:19] LABS: CREATININE 2.3 mg/dL (0.55-1.3)
[2022-11-07 10:21] LABS: BILIRUBIN,TOTAL 0.8 mg/dL (0.2-1); TOT PROT 5.8 g/dl (6.4-8.2)
[2022-11-07] MEDS: amLODIPine BESYLATE 5 MG TABLET (FP) PO SCH (10:51)
[2022-11-07] MEDS: LACTATED RINGERS SOLUTION 1,000 ML IV SCH ×2 (11:30→16:21)
[2022-11-07] MEDS: CEFTRIAXONE 2 GM in DEXTROSE 5%-WATER 100 ML IVPB SCH (17:06)
[2022-11-07] MEDS: LABETALOL HCL 100 MG TABLET (FP) PO SCH (22:05)
[2022-11-08] MEDS: INSULIN SLIDING SCALE (NOVOLOG) 1 VIAL SQ SCH ×4 (06:46→22:17)
[2022-11-08] MEDS: CEFTRIAXONE 2 GM in DEXTROSE 5%-WATER 100 ML IVPB SCH (09:45)
[2022-11-08] MEDS: LABETALOL HCL 100 MG TABLET (FP) PO SCH ×2 (09:46→22:19)
[2022-11-08] MEDS: HEPARIN NA (PORCINE) 5,000 UNITS/ML 1ML VIAL SQ SCH ×2 (09:46→22:19)
[2022-11-08] MEDS: amLODIPine BESYLATE 5 MG TABLET (FP) PO SCH (09:46)
[2022-11-08] MEDS: LACTATED RINGERS SOLUTION 1,000 ML IV SCH ×2 (11:02→17:02)
[2022-11-08 11:10] LABS: CALCIUM 8.2 mg/dL (8.5-10.1)
[2022-11-08 11:11] LABS: ALBUMIN 2.1 g/dl (3.4-5.0); BLOOD UREA NITROGEN 23.9 mg/dL (7-18)
[2022-11-08 11:14] LABS: CREATININE 2.1 mg/dL (0.55-1.3)
[2022-11-08 11:15] LABS: TOT PROT 5.7 g/dl (6.4-8.2)
[2022-11-08 11:16] LABS: BILIRUBIN,TOTAL 0.3 mg/dL (0.2-1)
[2022-11-08] MEDS ORDERED: BISACODYL 5 MG TABLET.DR (FP) PO ONE (18:00)
[2022-11-09] MEDS: INSULIN SLIDING SCALE (NOVOLOG) 1 VIAL SQ SCH ×4 (06:11→21:33)
[2022-11-09] MEDS: LABETALOL HCL 100 MG TABLET (FP) PO SCH ×2 (10:10→21:34)
[2022-11-09] MEDS: HEPARIN NA (PORCINE) 5,000 UNITS/ML 1ML VIAL SQ SCH (10:11)
[2022-11-09] MEDS: CEFTRIAXONE 2 GM in DEXTROSE 5%-WATER 100 ML IVPB SCH (10:11)
[2022-11-09] MEDS: amLODIPine BESYLATE 5 MG TABLET (FP) PO SCH (10:12)
[2022-11-09 11:18] LABS: BLOOD UREA NITROGEN 19.5 mg/dL (7-18)
[2022-11-09 11:20] LABS: CALCIUM 8.3 mg/dL (8.5-10.1)
[2022-11-09 11:21] LABS: CREATININE 1.9 mg/dL (0.55-1.3)
[2022-11-09] MEDS ORDERED: BISACODYL 5 MG TABLET.DR (FP) PO ONE (14:00)
[2022-11-09] MEDS ORDERED: PEG 3350/NA SULF BICARB CL/KCL 4000 ML SOLN.RECON PO ONE (14:00)
[2022-11-09] MEDS: LACTATED RINGERS SOLUTION 1,000 ML IV SCH (16:41)
[2022-11-10] MEDS: INSULIN SLIDING SCALE (NOVOLOG) 1 VIAL SQ SCH ×4 (06:15→21:55)
[2022-11-10] MEDS: LABETALOL HCL 100 MG TABLET (FP) PO SCH ×2 (09:47→21:55)
[2022-11-10] MEDS: amLODIPine BESYLATE 5 MG TABLET (FP) PO SCH (09:48)
[2022-11-10] MEDS: CEFTRIAXONE 2 GM in DEXTROSE 5%-WATER 100 ML IVPB SCH (09:49)
[2022-11-10] MEDS ORDERED: INSULIN (NOVOLOG) ASPART 100 UNITS/ML 10ML VIAL ONE (16:28)
[2022-11-11 03:03] VITALS: RESP 18
[2022-11-11] MEDS: INSULIN SLIDING SCALE (NOVOLOG) 1 VIAL SQ SCH ×4 (07:16→21:45)
[2022-11-11] MEDS: amLODIPine BESYLATE 5 MG TABLET (FP) PO SCH (09:41)
[2022-11-11] MEDS: LABETALOL HCL 100 MG TABLET (FP) PO SCH ×2 (09:42→21:46)
[2022-11-11] MEDS: CEFTRIAXONE 2 GM in DEXTROSE 5%-WATER 100 ML IVPB SCH (09:42)
[2022-11-11 10:18] LABS: CALCIUM 8.5 mg/dL (8.5-10.1)
[2022-11-11 10:19] LABS: BLOOD UREA NITROGEN 10.8 mg/dL (7-18)
[2022-11-11 10:22] LABS: CREATININE 1.7 mg/dL (0.55-1.3)
[2022-11-11 11:07] LABS: HEMATOCRIT 33.5 % (35.4-49); HEMOGLOBIN 10.6 GM/dL (11.7-16.9); MCH 25.8 pg (25.7-33.7); MCHC 31.8 g/dl (32.0-35.9); RBC 4.13 M/mm3 (4.00-5.60); RDW 16.5 % (11.9-15.9)
[2022-11-11 11:10] LABS: WHITE BLOOD COUNT 7.6 K/mm3 (4.0-10.0)
[2022-11-11 11:12] LABS: MEAN PLT VOLUME 9.7 fl (7.5-11.1); PLATELET COUNT 251 10^3/uL (134-434)
[2022-11-11] MEDS ORDERED: POTASSIUM CHLORIDE TABS 20 MEQ TABLET.ER (FP) PO ONE (11:35)
[2022-11-11 13:58] LABS: MAGNESIUM 1.7 mg/dL (1.8-2.4)
[2022-11-11 14:01] LABS: PHOSPHOROUS 2.6 mg/dL (2.5-4.9)
[2022-11-11] MEDS ORDERED: MAGNESIUM SULF 50% (8.12 MEQ/2 ML-1 GM VIAL) IVPB ONE ×2 (14:49→17:30)
[2022-11-11 16:16] LABS: ALBUMIN 2.4 g/dl (3.4-5.0)
[2022-11-11 16:21] LABS: TOT PROT 6.2 g/dl (6.4-8.2)
[2022-11-11 16:22] LABS: BILIRUBIN,DIRECT 0.1 mg/dL (0.0-0.2)
[2022-11-11 16:23] LABS: BILIRUBIN,TOTAL 0.2 mg/dL (0.2-1)
[2022-11-12] MEDS: INSULIN SLIDING SCALE (NOVOLOG) 1 VIAL SQ SCH ×4 (06:40→22:19)
[2022-11-12] MEDS ORDERED: INSULIN (NOVOLOG) ASPART 100 UNITS/ML 10ML VIAL ONE ×3 (06:54→18:59)
[2022-11-12] MEDS: amLODIPine BESYLATE 5 MG TABLET (FP) PO SCH (09:45)
[2022-11-12] MEDS: LABETALOL HCL 100 MG TABLET (FP) PO SCH ×2 (09:45→22:18)
[2022-11-12] MEDS: CEFTRIAXONE 2 GM in DEXTROSE 5%-WATER 100 ML IVPB SCH (09:46)
[2022-11-12 12:02] LABS: CALCIUM 8.1 mg/dL (8.5-10.1)
[2022-11-12 12:03] LABS: BLOOD UREA NITROGEN 10.3 mg/dL (7-18); MAGNESIUM 1.8 mg/dL (1.8-2.4)
[2022-11-12 12:06] LABS: CREATININE 1.8 mg/dL (0.55-1.3); PHOSPHOROUS 2.5 mg/dL (2.5-4.9)
[2022-11-12] MEDS: HEPARIN NA (PORCINE) 5,000 UNITS/ML 1ML VIAL SQ SCH (22:18)
[2022-11-13] MEDS: INSULIN SLIDING SCALE (NOVOLOG) 1 VIAL SQ SCH ×4 (06:19→21:17)
[2022-11-13] MEDS: LABETALOL HCL 100 MG TABLET (FP) PO SCH ×2 (09:18→21:16)
[2022-11-13] MEDS: amLODIPine BESYLATE 5 MG TABLET (FP) PO SCH (09:18)
[2022-11-13] MEDS: HEPARIN NA (PORCINE) 5,000 UNITS/ML 1ML VIAL SQ SCH ×2 (09:18→21:16)
[2022-11-13] MEDS: CEFTRIAXONE 2 GM in DEXTROSE 5%-WATER 100 ML IVPB SCH (09:19)
[2022-11-13 11:36] LABS: HEMATOCRIT 28.7 % (35.4-49); HEMOGLOBIN 9.5 GM/dL (11.7-16.9); MCH 26.7 pg (25.7-33.7); MCHC 33.1 g/dl (32.0-35.9); MEAN CELL VOLUME 80.8 fl (80-96); MEAN PLT VOLUME 9.5 fl (7.5-11.1); PLATELET COUNT 193 10^3/uL (134-434); RBC 3.56 M/mm3 (4.00-5.60); RDW 16.4 % (11.9-15.9); WHITE BLOOD COUNT 4.1 K/mm3 (4.0-10.0)
[2022-11-13 12:12] LABS: CALCIUM 8.1 mg/dL (8.5-10.1)
[2022-11-13 12:16] LABS: CREATININE 1.7 mg/dL (0.55-1.3)
[2022-11-13 12:21] LABS: BLOOD UREA NITROGEN 6.9 mg/dL (7-18)
[2022-11-13] MEDS ORDERED: POTASSIUM CHLORIDE TABS 20 MEQ TABLET.ER (FP) PO ONE (15:08)
[2022-11-13] MEDS ORDERED: INSULIN (NOVOLOG) ASPART 100 UNITS/ML 10ML VIAL ONE (21:04)
[2022-11-13 21:16] VITALS: BP 158/72; PULSE 72; TEMP 98.3
== END 2022-11-13 21:15 | disposition short-term general hospital (02) | DRG 871 ==
LOC: JER 13:41 → JERBED 16:31 → JICU 11-03 00:48 → J6S 11-03 16:47
PROVIDERS: ADMIT Internal Medicine Pulmonary Disease; ATTEND Internal Medicine
PROC: 0X940ZX Drainage of Right Axilla, Open Approach, Diagnostic (ICD-10-PCS; 2022-11-07)
PROC: 0DBL8ZX Excision of Transverse Colon, Via Natural or Artificial Opening Endoscopic, Diagnostic (ICD-10-PCS; 2022-11-10)
PROC: 0DBN8ZX Excision of Sigmoid Colon, Via Natural or Artificial Opening Endoscopic, Diagnostic (ICD-10-PCS; 2022-11-10)
PROC: 0DBM8ZX Excision of Descending Colon, Via Natural or Artificial Opening Endoscopic, Diagnostic (ICD-10-PCS; 2022-11-10)
PROC: 0DBH8ZX Excision of Cecum, Via Natural or Artificial Opening Endoscopic, Diagnostic (ICD-10-PCS; 2022-11-10)
PROC: 0T9B30Z Drainage of Bladder with Drainage Device, Percutaneous Approach (ICD-10-PCS; 2022-11-10)
PROC: 0DBK8ZX Excision of Ascending Colon, Via Natural or Artificial Opening Endoscopic, Diagnostic (ICD-10-PCS; principal; 2022-11-10 13:30)
DX: A41.89 Other specified sepsis (principal); K65.9 Peritonitis, unspecified; K82.A2 Perforation of gallbladder in cholecystitis; L02.411 Cutaneous abscess of right axilla; N17.9 Acute kidney failure, unspecified; C20 Malignant neoplasm of rectum; J90 Pleural effusion, not elsewhere classified; J98.11 Atelectasis; K80.12 Calculus of gallbladder with acute and chronic cholecystitis without obstruction; E78.5 Hyperlipidemia, unspecified; R59.9 Enlarged lymph nodes, unspecified; F10.10 Alcohol abuse, uncomplicated; D50.9 Iron deficiency anemia, unspecified; I12.9 Hypertensive chronic kidney disease with stage 1 through stage 4 chronic kidney disease, or unspecified chronic kidney disease; E11.22 Type 2 diabetes mellitus with diabetic chronic kidney disease; N18.9 Chronic kidney disease, unspecified; D72.829 Elevated white blood cell count, unspecified; L72.3 Sebaceous cyst; R80.9 Proteinuria, unspecified; E86.0 Dehydration; D64.9 Anemia, unspecified; E87.6 Hypokalemia; B95.62 Methicillin resistant Staphylococcus aureus infection as the cause of diseases classified elsewhere
CPT/HCPCS: 0241U-QW; 36415; 36430; 47490; 71045-TC-FY; 74176-TC; 76705-TC; 76882-TC-RT-FY; 78226-TC; 80048; 80053; 80076; 81003; 82010; 82248; 82378; 82803; 82962; 82977; 83036; 83605; 83690; 83735; 84100; 84484; 85025; 85027; 85610; 85730; 86850; 86900; 86901; 86922; 87070; 87075; 87086; 87186; 87205; 88305-TC; 93005; 93010; 94760; 99285-25; A9537; C9803-CS; J1644; P9058; U0003; U0005

== ENCOUNTER 2023-01-19 04:15 | Day surgery (SDC) | payer OTHER ==
[2023-01-18 10:49] VITALS: BMI 28.2
[~2023-01-19 04:15] MED LIST: BUPIVACAINE HCL/PF 0.25% (2.5MG/ML) 10 ML VIAL IJ ONE
[2023-01-19] MEDS ORDERED: BUPIVACAINE HCL/PF 0.25% (2.5MG/ML) 10 ML VIAL ONE (07:23)
[2023-01-19] MEDS ORDERED: HEPARIN NA (PORCINE) 5,000 UNITS/ML 1ML VIAL ONE (07:44)
[2023-01-19] MEDS ORDERED: SUCCINYLCHOLINE CHLORIDE 200 MG/10 ML SYRINGE ONE (07:58)
[2023-01-19] MEDS ORDERED: PROPOFOL 40 ML ONE (07:58)
[2023-01-19] MEDS ORDERED: MIDAZOLAM HCL 2 MG/2 ML SINGLE DOSE VIAL ONE (07:58)
[2023-01-19] MEDS ORDERED: ROCURONIUM BROMIDE 50 MG/5 ML SYRINGE ONE (07:58)
[2023-01-19] MEDS ORDERED: cefOXitin SODIUM 2 GM VIAL (RESTRICTED TO ID) IVPB ONE ×2 (07:59→08:20)
[2023-01-19] MEDS ORDERED: BUPIVACAINE HCL/PF 0.25% (2.5MG/ML) 10 ML VIAL IJ ONE (08:28)
[2023-01-19] MEDS ORDERED: ONDANSETRON 4 MG/2 ML VIAL ONE ×2 (08:42→09:21)
[2023-01-19] MEDS ORDERED: DEXAMETHASONE SOD PHOSPHATE 4 MG/1 ML VIAL ONE (08:42)
[2023-01-19] MEDS ORDERED: NEOSTIGMINE METHYLSULFATE 0.5 MG/1 ML - 10 ML MDV ONE (09:21)
[2023-01-19] MEDS ORDERED: GLYCOPYRROLATE 0.2 MG/1 ML VIAL ONE (09:21)
[2023-01-19] MEDS ORDERED: ENALAPRILAT DIHYDRATE 2.5 MG/2 ML VIAL IVPB ONE (09:41)
[2023-01-19] MEDS ORDERED: ONDANSETRON 4 MG/2 ML VIAL IVPUSH PRN (09:47)
[2023-01-19] MEDS ORDERED: oxyCODONE HCL 5 MG TABLET PO PRN (09:47)
[2023-01-19] MEDS ORDERED: SODIUM CHLORIDE 1,000 ML IV SCH (10:00)
[2023-01-19 12:13] VITALS: RESP 18
[2023-01-19 12:22] VITALS: PULSE 60
[2023-01-19 15:30] VITALS: BP 155/54; TEMP 97
== END 2023-01-19 15:31 | disposition home or self-care (01) ==
LOC: JASU-SURG 04:15
PROVIDERS: ATTEND Surgery
PROC: 0W9F30Z Drainage of Abdominal Wall with Drainage Device, Percutaneous Approach (ICD-10-PCS; 2023-01-19)
PROC: 0FT44ZZ Resection of Gallbladder, Percutaneous Endoscopic Approach (ICD-10-PCS; principal; 2023-01-19 08:00)
DX: K81.0 Acute cholecystitis (principal); K82.A1 Gangrene of gallbladder in cholecystitis; K82.A2 Perforation of gallbladder in cholecystitis
CPT/HCPCS: 82962; 87070; 87205; 88304-TC; 88342-TC; 94760; J1644

== ENCOUNTER 2023-04-01 09:32 | Inpatient (IN) | payer OTHER ==
[2023-04-01 10:15] VITALS: BMI 28.2
[2023-04-01 11:37] LABS: BASO % 0.5 % (0-2.0); EOS % 0.6 % (0-4.5); HEMATOCRIT 21.7 % (35.4-49); HEMOGLOBIN 7.6 GM/dL (11.7-16.9); MCH 29.7 pg (25.7-33.7); MCHC 34.9 g/dl (32.0-35.9); MEAN CELL VOLUME 84.9 fl (80-96); MEAN PLT VOLUME 10.3 fl (7.5-11.1); NEUT % 86.9 % (42.8-82.8); PLATELET COUNT 173 10^3/uL (134-434); RBC 2.56 M/mm3 (4.00-5.60); RDW 14.8 % (11.9-15.9); WHITE BLOOD COUNT 10.6 K/mm3 (4.0-10.0)
[2023-04-01 11:56] LABS: POTASSIUM 5.3 mmol/L (3.5-5.1)
[2023-04-01 11:58] LABS: ALBUMIN 3.1 g/dl (3.4-5.0); BLOOD UREA NITROGEN 38.4 mg/dL (7-18); CALCIUM 8.7 mg/dL (8.5-10.1)
[2023-04-01 12:01] LABS: CREATININE 2.7 mg/dL (0.55-1.3); MAGNESIUM 2.2 mg/dL (1.8-2.4)
[2023-04-01 12:03] LABS: BILIRUBIN,TOTAL 0.6 mg/dL (0.2-1); TOT PROT 7.1 g/dl (6.4-8.2)
[2023-04-01 12:06] LABS: N-TERMINAL BNP 4475.8 pg/ml (5-450)
[2023-04-01] MEDS ORDERED: ASPIRIN 81 MG CHEWABLE TABLETS PO ONE (12:24)
[2023-04-01] MEDS ORDERED: ASPIRIN 81 MG CHEWABLE TABLETS ONE (12:32)
[2023-04-01] MEDS ORDERED: FUROSEMIDE 40 MG/4 ML INJECTABLE VIAL IVPUSH SCH (14:00)
[2023-04-01] MEDS ORDERED: FUROSEMIDE 40 MG/4 ML INJECTABLE VIAL ONE (16:06)
[2023-04-01] MEDS ORDERED: HEPARIN NA (PORCINE) 5,000 UNITS/ML 1ML VIAL ONE (16:06)
[2023-04-01] MEDS: HEPARIN NA (PORCINE) 5,000 UNITS/ML 1ML VIAL SQ SCH ×2 (16:19→21:47)
[2023-04-01] MEDS: INSULIN SLIDING SCALE (NOVOLOG) 1 VIAL SQ SCH ×2 (18:45→21:52)
[2023-04-01] MEDS ORDERED: ALBUTEROL SO4 0.083% IH SOL 2.5 MG/3 ML VIAL.NEB. NEB PRN (20:35)
[2023-04-01] MEDS ORDERED: FUROSEMIDE 40 MG/4 ML INJECTABLE VIAL IVPUSH ONE ×2 (20:35)
[2023-04-01 21:02] LABS: POTASSIUM 4.5 mmol/L (3.5-5.1)
[2023-04-01 21:03] LABS: CALCIUM 9.1 mg/dL (8.5-10.1)
[2023-04-01 21:07] LABS: CREATININE 2.8 mg/dL (0.55-1.3)
[2023-04-01] MEDS: ATORVASTATIN CA 20 MG TABLET (FP) PO SCH (21:46)
[2023-04-01] MEDS: LABETALOL HCL 200 MG TABLET (FP) PO SCH (21:46)
[2023-04-01] MEDS: INSULIN (LEVEMIR) 100 UNITS/ML UNITS SQ SCH (21:49)
[2023-04-02] MEDS ORDERED: HALOPERIDOL LACTATE 5 MG/ML IM ONE (03:09)
[2023-04-02] MEDS: INSULIN SLIDING SCALE (NOVOLOG) 1 VIAL SQ SCH ×4 (06:03→21:14)
[2023-04-02] MEDS: HEPARIN NA (PORCINE) 5,000 UNITS/ML 1ML VIAL SQ SCH ×3 (06:06→21:15)
[2023-04-02 06:41] LABS: BASO % 0.5 % (0-2.0); EOS % 1.7 % (0-4.5); HEMATOCRIT 21.6 % (35.4-49); HEMOGLOBIN 7.5 GM/dL (11.7-16.9); LYMPH % 3.5 % (8-40); MCH 29.1 pg (25.7-33.7); MCHC 34.6 g/dl (32.0-35.9); MEAN PLT VOLUME 9.7 fl (7.5-11.1); MONO % 9.5 % (3.8-10.2); NEUT % 84.8 % (42.8-82.8); PLATELET COUNT 209 10^3/uL (134-434); RBC 2.57 M/mm3 (4.00-5.60); RDW 14.7 % (11.9-15.9); WHITE BLOOD COUNT 11.1 K/mm3 (4.0-10.0)
[2023-04-02 06:55] LABS: POTASSIUM 3.8 mmol/L (3.5-5.1)
[2023-04-02 06:59] LABS: ALBUMIN 2.9 g/dl (3.4-5.0); BLOOD UREA NITROGEN 37.4 mg/dL (7-18)
[2023-04-02 07:02] LABS: CREATININE 2.6 mg/dL (0.55-1.3); PHOSPHOROUS 3.6 mg/dL (2.5-4.9)
[2023-04-02 07:04] LABS: BILIRUBIN,TOTAL 0.5 mg/dL (0.2-1); TOT PROT 6.8 g/dl (6.4-8.2)
[2023-04-02] MEDS: INSULIN (LEVEMIR) 100 UNITS/ML UNITS SQ SCH ×2 (10:42→21:15)
[2023-04-02] MEDS: FUROSEMIDE 40 MG/4 ML INJECTABLE VIAL IVPUSH SCH (10:42)
[2023-04-02] MEDS: LABETALOL HCL 200 MG TABLET (FP) PO SCH ×2 (10:42→21:15)
[2023-04-02] MEDS: ASPIRIN COATED 81 MG TABLET.EC PO SCH (10:42)
[2023-04-02] MEDS: amLODIPine BESYLATE 5 MG TABLET (FP) PO SCH (10:42)
[2023-04-02] MEDS ORDERED: INSULIN SLIDING SCALE (NOVOLOG) 1 VIAL SQ ONE (21:08)
[2023-04-02] MEDS: ATORVASTATIN CA 20 MG TABLET (FP) PO SCH (21:15)
[2023-04-03] MEDS: HEPARIN NA (PORCINE) 5,000 UNITS/ML 1ML VIAL SQ SCH ×3 (05:34→21:39)
[2023-04-03] MEDS: INSULIN SLIDING SCALE (NOVOLOG) 1 VIAL SQ SCH ×4 (06:24→21:42)
[2023-04-03 08:19] LABS: HEMATOCRIT 21.3 % (35.4-49); HEMOGLOBIN 7.4 GM/dL (11.7-16.9); MCH 29.3 pg (25.7-33.7); MCHC 34.9 g/dl (32.0-35.9); MEAN CELL VOLUME 84.1 fl (80-96); MEAN PLT VOLUME 10.1 fl (7.5-11.1); PLATELET COUNT 227 10^3/uL (134-434); RBC 2.53 M/mm3 (4.00-5.60); RDW 14.9 % (11.9-15.9); WHITE BLOOD COUNT 9.5 K/mm3 (4.0-10.0)
[2023-04-03 08:48] LABS: CALCIUM 8.6 mg/dL (8.5-10.1)
[2023-04-03 08:49] LABS: BLOOD UREA NITROGEN 41.7 mg/dL (7-18)
[2023-04-03 08:52] LABS: CREATININE 2.6 mg/dL (0.55-1.3)
[2023-04-03] MEDS: LABETALOL HCL 200 MG TABLET (FP) PO SCH ×2 (10:16→21:40)
[2023-04-03] MEDS: FUROSEMIDE 40 MG/4 ML INJECTABLE VIAL IVPUSH SCH (10:16)
[2023-04-03] MEDS: ASPIRIN COATED 81 MG TABLET.EC PO SCH (10:16)
[2023-04-03] MEDS: INSULIN (LEVEMIR) 100 UNITS/ML UNITS SQ SCH ×2 (10:16→21:39)
[2023-04-03] MEDS: amLODIPine BESYLATE 5 MG TABLET (FP) PO SCH (10:17)
[2023-04-03] MEDS ORDERED: IRON SUCROSE INJECTION 200 MG in SODIUM CHLORIDE 90 ML IVPB ONE (11:44)
[2023-04-03] MEDS: ATORVASTATIN CA 20 MG TABLET (FP) PO SCH (21:39)
[2023-04-04] MEDS: HEPARIN NA (PORCINE) 5,000 UNITS/ML 1ML VIAL SQ SCH ×3 (06:18→21:44)
[2023-04-04] MEDS: INSULIN SLIDING SCALE (NOVOLOG) 1 VIAL SQ SCH ×4 (06:23→21:40)
[2023-04-04 07:30] LABS: HEMATOCRIT 20.6 % (35.4-49); MCH 28.7 pg (25.7-33.7); MCHC 34.2 g/dl (32.0-35.9); MEAN PLT VOLUME 9.3 fl (7.5-11.1); PLATELET COUNT 241 10^3/uL (134-434); RBC 2.45 M/mm3 (4.00-5.60); RDW 15.3 % (11.9-15.9); WHITE BLOOD COUNT 7.8 K/mm3 (4.0-10.0)
[2023-04-04 07:49] LABS: POTASSIUM 4.3 mmol/L (3.5-5.1)
[2023-04-04 07:53] LABS: CALCIUM 8.4 mg/dL (8.5-10.1)
[2023-04-04 07:54] LABS: BLOOD UREA NITROGEN 49.3 mg/dL (7-18); MAGNESIUM 2.1 mg/dL (1.8-2.4)
[2023-04-04 07:57] LABS: CREATININE 2.7 mg/dL (0.55-1.3); PHOSPHOROUS 4.7 mg/dL (2.5-4.9)
[2023-04-04] MEDS: INSULIN (LEVEMIR) 100 UNITS/ML UNITS SQ SCH ×2 (09:38→21:41)
[2023-04-04] MEDS: ASPIRIN COATED 81 MG TABLET.EC PO SCH (09:39)
[2023-04-04] MEDS: LABETALOL HCL 200 MG TABLET (FP) PO SCH ×2 (09:39→21:44)
[2023-04-04] MEDS: amLODIPine BESYLATE 5 MG TABLET (FP) PO SCH (09:39)
[2023-04-04] MEDS ORDERED: IRON SUCROSE INJECTION 200 MG in SODIUM CHLORIDE 90 ML IVPB ONE (11:45)
[2023-04-04] MEDS ORDERED: FUROSEMIDE 40 MG/4 ML INJECTABLE VIAL IVPUSH SCH (15:00)
[2023-04-04] MEDS ORDERED: POLYETHYLENE GLYCOL 3350 255 GM BTL PO SCH (17:15)
[2023-04-04] MEDS: POLYETHYLENE GLYCOL (HEALTHYLAX) 3350 17 GM PACKET PO SCH (18:15)
[2023-04-04] MEDS: ATORVASTATIN CA 20 MG TABLET (FP) PO SCH (21:44)
[2023-04-05] MEDS: HEPARIN NA (PORCINE) 5,000 UNITS/ML 1ML VIAL SQ SCH ×3 (06:13→21:25)
[2023-04-05] MEDS: INSULIN SLIDING SCALE (NOVOLOG) 1 VIAL SQ SCH ×4 (06:14→21:24)
[2023-04-05 06:33] LABS: BASO % 0.5 % (0-2.0); EOS % 6.2 % (0-4.5); HEMATOCRIT 23.2 % (35.4-49); HEMOGLOBIN 8.1 GM/dL (11.7-16.9); LYMPH % 6.1 % (8-40); MCH 28.9 pg (25.7-33.7); MCHC 34.8 g/dl (32.0-35.9); MEAN CELL VOLUME 83.2 fl (80-96); MEAN PLT VOLUME 9.5 fl (7.5-11.1); MONO % 9.1 % (3.8-10.2); NEUT % 78.1 % (42.8-82.8); PLATELET COUNT 264 10^3/uL (134-434); RBC 2.79 M/mm3 (4.00-5.60); RDW 15.3 % (11.9-15.9); WHITE BLOOD COUNT 9.2 K/mm3 (4.0-10.0)
[2023-04-05 06:41] LABS: POTASSIUM 4.5 mmol/L (3.5-5.1)
[2023-04-05 06:44] LABS: ALBUMIN 2.7 g/dl (3.4-5.0); BLOOD UREA NITROGEN 49.8 mg/dL (7-18); CALCIUM 8.5 mg/dL (8.5-10.1)
[2023-04-05 06:47] LABS: CREATININE 2.6 mg/dL (0.55-1.3); PHOSPHOROUS 4.8 mg/dL (2.5-4.9)
[2023-04-05 06:49] LABS: TOT PROT 6.6 g/dl (6.4-8.2)
[2023-04-05 06:52] LABS: BILIRUBIN,TOTAL 0.3 mg/dL (0.2-1)
[2023-04-05] MEDS ORDERED: LISINOPRIL 10 MG TABLET PO SCH (10:00)
[2023-04-05] MEDS: ASPIRIN COATED 81 MG TABLET.EC PO SCH (10:12)
[2023-04-05] MEDS: INSULIN (LEVEMIR) 100 UNITS/ML UNITS SQ SCH ×2 (10:12→21:25)
[2023-04-05] MEDS: FUROSEMIDE 20 MG TABLET (FP) PO SCH (10:12)
[2023-04-05] MEDS: LABETALOL HCL 200 MG TABLET (FP) PO SCH ×2 (10:12→21:26)
[2023-04-05] MEDS: POLYETHYLENE GLYCOL (HEALTHYLAX) 3350 17 GM PACKET PO SCH (10:13)
[2023-04-05] MEDS: amLODIPine BESYLATE 5 MG TABLET (FP) PO SCH (10:13)
[2023-04-05] MEDS: INSULIN (NOVOLOG) ASPART 100 UNITS/ML 10ML VIAL SQ SCH ×2 (10:41→16:52)
[2023-04-05] MEDS: ATORVASTATIN CA 20 MG TABLET (FP) PO SCH (21:26)
[2023-04-06] MEDS: HEPARIN NA (PORCINE) 5,000 UNITS/ML 1ML VIAL SQ SCH ×3 (05:49→21:58)
[2023-04-06] MEDS: INSULIN SLIDING SCALE (NOVOLOG) 1 VIAL SQ SCH ×4 (06:14→21:58)
[2023-04-06 06:40] LABS: HEMATOCRIT 23.4 % (35.4-49); MCH 28.7 pg (25.7-33.7); MCHC 34.2 g/dl (32.0-35.9); MEAN PLT VOLUME 9.6 fl (7.5-11.1); PLATELET COUNT 268 10^3/uL (134-434); RBC 2.79 M/mm3 (4.00-5.60); RDW 15.2 % (11.9-15.9); WHITE BLOOD COUNT 11.4 K/mm3 (4.0-10.0)
[2023-04-06 07:15] LABS: POTASSIUM 4.3 mmol/L (3.5-5.1)
[2023-04-06 07:20] LABS: BLOOD UREA NITROGEN 49.5 mg/dL (7-18); CALCIUM 8.4 mg/dL (8.5-10.1)
[2023-04-06 07:24] LABS: CREATININE 2.4 mg/dL (0.55-1.3)
[2023-04-06] MEDS: INSULIN (NOVOLOG) ASPART 100 UNITS/ML 10ML VIAL SQ SCH ×3 (07:38→17:36)
[2023-04-06] MEDS: ASPIRIN COATED 81 MG TABLET.EC PO SCH (09:57)
[2023-04-06] MEDS: amLODIPine BESYLATE 5 MG TABLET (FP) PO SCH (09:57)
[2023-04-06] MEDS: POLYETHYLENE GLYCOL (HEALTHYLAX) 3350 17 GM PACKET PO SCH (09:57)
[2023-04-06] MEDS: LABETALOL HCL 200 MG TABLET (FP) PO SCH ×2 (09:57→21:58)
[2023-04-06] MEDS: FUROSEMIDE 20 MG TABLET (FP) PO SCH (09:57)
[2023-04-06] MEDS: INSULIN (LEVEMIR) 100 UNITS/ML UNITS SQ SCH ×2 (11:01→21:59)
[2023-04-06] MEDS: ATORVASTATIN CA 20 MG TABLET (FP) PO SCH (21:58)
[2023-04-07] MEDS: HEPARIN NA (PORCINE) 5,000 UNITS/ML 1ML VIAL SQ SCH ×2 (05:24→14:05)
[2023-04-07 06:50] LABS: HEMOGLOBIN 7.9 GM/dL (11.7-16.9); MCH 28.8 pg (25.7-33.7); MCHC 34.4 g/dl (32.0-35.9); MEAN CELL VOLUME 83.5 fl (80-96); MEAN PLT VOLUME 9.7 fl (7.5-11.1); PLATELET COUNT 263 10^3/uL (134-434); RBC 2.75 M/mm3 (4.00-5.60); WHITE BLOOD COUNT 12.1 K/mm3 (4.0-10.0)
[2023-04-07 07:18] LABS: POTASSIUM 4.3 mmol/L (3.5-5.1)
[2023-04-07] MEDS: INSULIN SLIDING SCALE (NOVOLOG) 1 VIAL SQ SCH ×3 (07:21→17:06)
[2023-04-07 07:25] LABS: ALBUMIN 2.8 g/dl (3.4-5.0); BLOOD UREA NITROGEN 42.3 mg/dL (7-18); CALCIUM 8.7 mg/dL (8.5-10.1)
[2023-04-07 07:28] LABS: CREATININE 2.2 mg/dL (0.55-1.3)
[2023-04-07 07:30] LABS: BILIRUBIN,TOTAL 0.4 mg/dL (0.2-1); TOT PROT 6.7 g/dl (6.4-8.2)
[2023-04-07] MEDS ORDERED: LISINOPRIL 5 MG TABLET PO SCH (10:00)
[2023-04-07] MEDS: LABETALOL HCL 200 MG TABLET (FP) PO SCH (10:05)
[2023-04-07] MEDS: amLODIPine BESYLATE 5 MG TABLET (FP) PO SCH (10:06)
[2023-04-07] MEDS: FUROSEMIDE 20 MG TABLET (FP) PO SCH (10:06)
[2023-04-07] MEDS: POLYETHYLENE GLYCOL (HEALTHYLAX) 3350 17 GM PACKET PO SCH (10:06)
[2023-04-07] MEDS: ASPIRIN COATED 81 MG TABLET.EC PO SCH (10:06)
[2023-04-07] MEDS: INSULIN (LEVEMIR) 100 UNITS/ML UNITS SQ SCH (10:07)
[2023-04-07] MEDS ORDERED: AMOX TR/POT CLAV 875MG/125MG TABLETS (FP) PO SCH ×2 (11:15→13:07)
[2023-04-07 19:01] VITALS: BP 155/62; PULSE 65; RESP 19; TEMP 98.3
== END 2023-04-07 19:04 | disposition home or self-care (01) | DRG 291 ==
LOC: JER 09:32 → JERBED 12:11 → J4S 18:57
PROVIDERS: ADMIT Internal Medicine; ATTEND Internal Medicine
DX: I13.0 Hypertensive heart and chronic kidney disease with heart failure and stage 1 through stage 4 chronic kidney disease, or unspecified chronic kidney disease (principal); I50.33 Acute on chronic diastolic (congestive) heart failure; J96.01 Acute respiratory failure with hypoxia; N17.9 Acute kidney failure, unspecified; I47.20 Ventricular tachycardia, unspecified; E78.5 Hyperlipidemia, unspecified; Z79.4 Long term (current) use of insulin; J45.909 Unspecified asthma, uncomplicated; D50.9 Iron deficiency anemia, unspecified; R77.8 Other specified abnormalities of plasma proteins; E11.22 Type 2 diabetes mellitus with diabetic chronic kidney disease; N18.30 Chronic kidney disease, stage 3 unspecified; G47.33 Obstructive sleep apnea (adult) (pediatric); E11.65 Type 2 diabetes mellitus with hyperglycemia; I16.0 Hypertensive urgency; M25.531 Pain in right wrist; I80.8 Phlebitis and thrombophlebitis of other sites
CPT/HCPCS: 0241U-QW; 36415; 36430; 71045-TC-FY; 72170-TC-FY; 73110-TC-RT-FY; 73130-TC-RT-FY; 76775-TC; 76856-TC; 80048; 80053; 82272; 82550; 82553; 82607; 82728; 82746; 82962; 83036; 83540; 83550; 83735; 83880; 84100; 84484; 85025; 85027; 85045; 86850; 86900; 86901; 86922; 87899; 93005; 93010; 93306-TC; 94640; 94660; 94761; 97116-GP; 97161-GP; 99285-25; J1644; J1756; P9058

== ENCOUNTER 2024-06-17 15:23 | Inpatient (IN) | payer OTHER ==
[2024-06-17] MEDS ORDERED: ACETAMINOPHEN INJECTION 100 ML IVPB ONE (16:39)
[2024-06-17] MEDS: LACTATED RINGERS SOLUTION 1000 ML INFUS.BAG IV ONE (16:40)
[2024-06-17] MEDS: ACETAMINOPHEN 1000 MG/100 ML BAG IVPB ONE (16:41)
[2024-06-17 16:48] LABS: BASO % 0.8 % (0-2.0); EOS % 1.8 % (0-4.5); HEMATOCRIT 24.7 % (35.4-49); HEMOGLOBIN 8.4 GM/dL (11.7-16.9); LYMPH % 7.5 % (8-40); MCH 30.1 pg (25.7-33.7); MCHC 34.1 g/dl (32.0-35.9); MEAN CELL VOLUME 88.1 fl (80-96); MEAN PLT VOLUME 9.7 fl (7.5-11.1); MONO % 9.3 % (3.8-10.2); NEUT % 80.6 % (42.8-82.8); PLATELET COUNT 211 10^3/uL (134-434); RDW 14.1 % (11.9-15.9); WHITE BLOOD COUNT 7.7 K/mm3 (4.0-10.0)
[2024-06-17 16:56] LABS: INR 1.04 (0.83-1.09); PROTHROMBIN TIME (PATIENT) 11.7 SEC (9.7-13.0)
[2024-06-17 16:58] LABS: ACTIVATED PTT 28.9 SECONDS (25.2-36.5)
[2024-06-17 17:11] LABS: CHLORIDE 101 mmol/L (98-107); POTASSIUM 4.9 mmol/L (3.5-5.1); SODIUM 135 mmol/L (136-145)
[2024-06-17 17:12] LABS: CALCIUM 9.1 mg/dL (8.5-10.1)
[2024-06-17 17:13] LABS: ALBUMIN 3.3 g/dl (3.4-5.0); ANION GAP 10 mmol/L (4-13); BLOOD UREA NITROGEN 37.3 mg/dL (7-18); CO2 25 mmol/L (21-32); GLUCOSE,RANDOM 222 mg/dL (74-106)
[2024-06-17 17:16] LABS: CREATININE 3.5 mg/dL (0.55-1.3); SGOT/AST 13 U/L (15-37); SGPT/ALT 12 U/L (13-61)
[2024-06-17 17:18] LABS: BILIRUBIN,TOTAL 0.3 mg/dL (0.2-1); TOT PROT 6.7 g/dl (6.4-8.2)
[2024-06-17 17:19] LABS: ALK PHOS 77 U/L (45-117)
[2024-06-17 18:40] LABS: EPI CELLS 12 /uL (0-25.1); HYALINE CASTS 3 /uL (0-3.1); PH,URINE 6.5 (5.0-8.0); URINE APPEARANCE CLEAR; URINE BACTERIA 10 /uL (0-1359); URINE BILIRUBIN NEGATIVE (NEGATIVE); URINE COLOR YELLOW; URINE GLUCOSE (UA) TRACE (NEGATIVE); URINE KETONE NEGATIVE (NEGATIVE); URINE LEUK ESTERASE TRACE (NEGATIVE); URINE NITRITE NEGATIVE (NEGATIVE); URINE PROTEIN 3+ (NEGATIVE); URINE RBC 14 /uL (0-23.9); URINE UROBILINOGEN 0.2 mg/dL (0.2-1.0); URINE WBC 225 /uL (0-25.8)
[2024-06-17 20:12] LABS: ERYTHROCYTE SEDIMENTATION RATE 87 mm/hr (0-20)
[2024-06-17] MEDS: SODIUM CHLORIDE 1,000 ML IV SCH (21:14)
[2024-06-17] MEDS ORDERED: amLODIPine BESYLATE 5 MG TABLET (FP) ONE (21:29)
[2024-06-17] MEDS: amLODIPine BESYLATE 5 MG TABLET (FP) PO ONE (21:33)
[2024-06-18] MEDS: LABETALOL HCL 100 MG TABLET (FP) PO ONE ×2 (03:07→03:08)
[2024-06-18 03:56] LABS: EPI CELLS 5 /uL (0-25.1); HYALINE CASTS 0 /uL (0-3.1); URINE APPEARANCE CLEAR; URINE BACTERIA 7 /uL (0-1359); URINE BILIRUBIN NEGATIVE (NEGATIVE); URINE COLOR YELLOW; URINE GLUCOSE (UA) TRACE (NEGATIVE); URINE KETONE NEGATIVE (NEGATIVE); URINE LEUK ESTERASE NEGATIVE (NEGATIVE); URINE NITRITE NEGATIVE (NEGATIVE); URINE PROTEIN 3+ (NEGATIVE); URINE RBC 15 /uL (0-23.9); URINE UROBILINOGEN 0.2 mg/dL (0.2-1.0)
[2024-06-18] MEDS ORDERED: ACETAMINOPHEN INJECTION 100 ML IVPB ONE (05:48)
[2024-06-18] MEDS: ACETAMINOPHEN 1000 MG/100 ML BAG IVPB ONE (05:51)
[2024-06-18] MEDS ORDERED: HEPARIN NA (PORCINE) 5,000 UNITS/ML 1ML VIAL ONE ×3 (06:24→22:26)
[2024-06-18] MEDS: HEPARIN NA (PORCINE) 5,000 UNITS/ML 1ML VIAL SQ SCH (06:31)
[2024-06-18 07:42] LABS: HEMATOCRIT 27.3 % (35.4-49); HEMOGLOBIN 9.7 GM/dL (11.7-16.9); MCH 30.7 pg (25.7-33.7); MCHC 35.5 g/dl (32.0-35.9); MEAN CELL VOLUME 86.6 fl (80-96); MEAN PLT VOLUME 9.9 fl (7.5-11.1); PLATELET COUNT 197 10^3/uL (134-434); RBC 3.15 M/mm3 (4.00-5.60); RDW 14.5 % (11.9-15.9); WHITE BLOOD COUNT 7.6 K/mm3 (4.0-10.0)
[2024-06-18] MEDS: INSULIN (LEVEMIR) 100 UNITS/ML UNITS SQ SCH (08:00)
[2024-06-18 08:02] LABS: POTASSIUM 4.1 mmol/L (3.5-5.1)
[2024-06-18 08:05] LABS: BLOOD UREA NITROGEN 33.2 mg/dL (7-18); CALCIUM 8.7 mg/dL (8.5-10.1); MAGNESIUM 1.8 mg/dL (1.8-2.4)
[2024-06-18 08:07] LABS: CREATININE 2.8 mg/dL (0.55-1.3)
[2024-06-18 08:08] LABS: PHOSPHOROUS 3.8 mg/dL (2.5-4.9)
[2024-06-18] MEDS ORDERED: INSULIN (LEVEMIR) 100 UNITS/ML UNITS SQ ONE (08:52)
[2024-06-18] MEDS ORDERED: INSULIN (NOVOLOG MIX 70/30) 100 UNITS/ML MDV SQ ONE (08:54)
[2024-06-18] MEDS: INSULIN ASPART SLIDING SCALE (NOVOLOG) 1 VIAL SQ SCH (08:58)
[2024-06-18] MEDS ORDERED: NIFEdipine E.R. 30 MG TABLET PO SCH (10:00)
[2024-06-18] MEDS ORDERED: FUROSEMIDE 40 MG TABLET (FP) PO SCH (10:00)
[2024-06-18] MEDS ORDERED: LABETALOL HCL 200 MG TABLET (FP) PO SCH (10:00)
[2024-06-18] MEDS ORDERED: LISINOPRIL 5 MG TABLET PO SCH (10:00)
[2024-06-18] MEDS: ASPIRIN COATED 81 MG TABLET.EC PO SCH (11:00)
[2024-06-18] MEDS ORDERED: ASPIRIN 81 MG CHEWABLE TABLETS ONE (11:41)
[2024-06-18] MEDS ORDERED: ASPIRIN COATED 81 MG TABLET.EC ONE (11:42)
[2024-06-18] MEDS: NIFEdipine E.R. 30 MG TABLET PO SCH (11:52)
[2024-06-18] MEDS: LABETALOL HCL 200 MG TABLET (FP) PO SCH (16:08)
[2024-06-18] MEDS ORDERED: INSULIN ASPART SLIDING SCALE (NOVOLOG) 1 VIAL SQ ONE ×2 (18:10→22:26)
[2024-06-18] MEDS: sitaGLIPtin PHOSPHATE 50 MG TABLET PO SCH (19:23)
[2024-06-18] MEDS ORDERED: ATORVASTATIN CA 20 MG TABLET (FP) ONE (22:25)
[2024-06-18] MEDS ORDERED: LABETALOL HCL 200 MG TABLET (FP) ONE (22:26)
[2024-06-18] MEDS ORDERED: NIFEdipine E.R 60 MG TABLET PO ONE (22:33)
[2024-06-18] MEDS: ATORVASTATIN CA 20 MG TABLET (FP) PO SCH (22:46)
[2024-06-19] MEDS ORDERED: LABETALOL HCL 200 MG TABLET (FP) ONE ×2 (06:19→15:41)
[2024-06-19] MEDS ORDERED: HEPARIN NA (PORCINE) 5,000 UNITS/ML 1ML VIAL ONE ×2 (06:19→15:41)
[2024-06-19] MEDS ORDERED: INSULIN (LEVEMIR) 100 UNITS/ML UNITS SQ ONE (06:20)
[2024-06-19 06:32] LABS: BASO % 0.7 % (0-2.0); EOS % 2.4 % (0-4.5); HEMATOCRIT 27.8 % (35.4-49); HEMOGLOBIN 9.7 GM/dL (11.7-16.9); MCH 30.3 pg (25.7-33.7); MCHC 34.9 g/dl (32.0-35.9); MEAN CELL VOLUME 86.8 fl (80-96); MEAN PLT VOLUME 9.9 fl (7.5-11.1); MONO % 9.7 % (3.8-10.2); NEUT % 78.2 % (42.8-82.8); PLATELET COUNT 201 10^3/uL (134-434); RDW 14.5 % (11.9-15.9); WHITE BLOOD COUNT 7.9 K/mm3 (4.0-10.0)
[2024-06-19 06:56] LABS: BLOOD UREA NITROGEN 36.3 mg/dL (7-18)
[2024-06-19 07:00] LABS: CREATININE 3.2 mg/dL (0.55-1.3)
[2024-06-19] MEDS ORDERED: ASPIRIN COATED 81 MG TABLET.EC ONE (10:29)
[2024-06-19] MEDS ORDERED: NIFEdipine E.R 60 MG TABLET PO ONE (10:29)
[2024-06-19] MEDS ORDERED: predniSONE 20 MG TABLET (UD) ONE (17:35)
[2024-06-19] MEDS ORDERED: INSULIN ASPART SLIDING SCALE (NOVOLOG) 1 VIAL SQ ONE ×2 (17:36→17:37)
[2024-06-19] MEDS: predniSONE 20 MG TABLET (UD) PO SCH (17:46)
[2024-06-19] MEDS: SODIUM CHLORIDE 1,000 ML IV SCH (17:46)
[2024-06-20 06:52] LABS: HEMATOCRIT 28.6 % (35.4-49); HEMOGLOBIN 9.8 GM/dL (11.7-16.9); MCH 29.9 pg (25.7-33.7); MCHC 34.2 g/dl (32.0-35.9); MEAN CELL VOLUME 87.2 fl (80-96); MEAN PLT VOLUME 10.2 fl (7.5-11.1); PLATELET COUNT 201 10^3/uL (134-434); RBC 3.28 M/mm3 (4.00-5.60); RDW 14.5 % (11.9-15.9); WHITE BLOOD COUNT 8.1 K/mm3 (4.0-10.0)
[2024-06-20 07:09] LABS: POTASSIUM 4.9 mmol/L (3.5-5.1)
[2024-06-20 07:11] LABS: CALCIUM 8.6 mg/dL (8.5-10.1)
[2024-06-20 07:12] LABS: ALBUMIN 3.1 g/dl (3.4-5.0)
[2024-06-20 07:15] LABS: CREATININE 3.3 mg/dL (0.55-1.3); PHOSPHOROUS 4.4 mg/dL (2.5-4.9)
[2024-06-20 07:16] LABS: BILIRUBIN,TOTAL 0.3 mg/dL (0.2-1)
[2024-06-20 07:17] LABS: TOT PROT 6.3 g/dl (6.4-8.2)
[2024-06-20 09:09] LABS: ANISOCYTOSIS 0; MACROCYTOSIS 0
[2024-06-20 09:13] LABS: PLATELET ESTIMATE ADEQUATE
[2024-06-21 07:53] LABS: BASO % 0.1 % (0-2.0); EOS % 0.1 % (0-4.5); HEMATOCRIT 25.1 % (35.4-49); HEMOGLOBIN 8.8 GM/dL (11.7-16.9); LYMPH % 6.3 % (8-40); MCH 30.5 pg (25.7-33.7); MCHC 34.9 g/dl (32.0-35.9); MEAN CELL VOLUME 87.5 fl (80-96); MEAN PLT VOLUME 10.4 fl (7.5-11.1); MONO % 7.7 % (3.8-10.2); NEUT % 85.8 % (42.8-82.8); PLATELET COUNT 173 10^3/uL (134-434); RBC 2.87 M/mm3 (4.00-5.60); RDW 14.4 % (11.9-15.9); WHITE BLOOD COUNT 9.3 K/mm3 (4.0-10.0)
[2024-06-21 08:00] LABS: POTASSIUM 4.8 mmol/L (3.5-5.1)
[2024-06-21 08:05] LABS: BLOOD UREA NITROGEN 69.4 mg/dL (7-18); CALCIUM 8.8 mg/dL (8.5-10.1)
[2024-06-21 08:06] LABS: ALBUMIN 3.1 g/dl (3.4-5.0); MAGNESIUM 2.1 mg/dL (1.8-2.4)
[2024-06-21 08:11] LABS: BILIRUBIN,TOTAL 0.3 mg/dL (0.2-1)
[2024-06-21 08:13] LABS: CREATININE 3.5 mg/dL (0.55-1.3); PHOSPHOROUS 4.4 mg/dL (2.5-4.9)
[2024-06-21] MEDS: ACETAMINOPHEN 325 MG TABLET (FP) PO PRN (10:06)
[2024-06-21] MEDS ORDERED: BACITRACIN ZINC 15 GM TUBE TOPICAL OINTMENT ONE (11:27)
[2024-06-21] MEDS: LIDOCAINE HCL 1%, 10 MG/ML (20ML VIAL) NR ONE (11:41)
[2024-06-21] MEDS ORDERED: oxyCODONE HCL 5 MG TABLET PO PRN (12:18)
[2024-06-21 16:13] VITALS: BMI 27.9
[2024-06-22 07:53] LABS: BASO % 0.1 % (0-2.0); EOS % 0.3 % (0-4.5); HEMATOCRIT 26.3 % (35.4-49); HEMOGLOBIN 9.1 GM/dL (11.7-16.9); LYMPH % 6.4 % (8-40); MCH 30.4 pg (25.7-33.7); MCHC 34.7 g/dl (32.0-35.9); MEAN CELL VOLUME 87.7 fl (80-96); MEAN PLT VOLUME 10.3 fl (7.5-11.1); NEUT % 86.2 % (42.8-82.8); PLATELET COUNT 187 10^3/uL (134-434); RDW 14.4 % (11.9-15.9); WHITE BLOOD COUNT 10.6 K/mm3 (4.0-10.0)
[2024-06-22 08:11] LABS: POTASSIUM 4.5 mmol/L (3.5-5.1)
[2024-06-22 08:12] LABS: CALCIUM 9.1 mg/dL (8.5-10.1)
[2024-06-22 08:13] LABS: BLOOD UREA NITROGEN 77.5 mg/dL (7-18)
[2024-06-22 08:16] LABS: CREATININE 3.4 mg/dL (0.55-1.3)
[2024-06-22 18:16] VITALS: BP 144/59; PULSE 63; RESP 18; TEMP 98.8
== END 2024-06-22 19:57 | disposition home or self-care (01) | DRG 516 ==
LOC: JER 15:23 → JERBED 19:50 → OBSVTOIN 06-18 11:30 → J4W 06-19 19:27
PROVIDERS: ADMIT Internal Medicine; ATTEND Internal Medicine
PROC: 30233N1 Transfusion of Nonautologous Red Blood Cells into Peripheral Vein, Percutaneous Approach (ICD-10-PCS; 2024-06-18)
PROC: 03BT3ZX Excision of Left Temporal Artery, Percutaneous Approach, Diagnostic (ICD-10-PCS; principal; 2024-06-21 11:00)
DX: M31.6 Other giant cell arteritis (principal); I13.0 Hypertensive heart and chronic kidney disease with heart failure and stage 1 through stage 4 chronic kidney disease, or unspecified chronic kidney disease; I50.32 Chronic diastolic (congestive) heart failure; N17.9 Acute kidney failure, unspecified; N18.30 Chronic kidney disease, stage 3 unspecified; J45.909 Unspecified asthma, uncomplicated; D64.9 Anemia, unspecified; E11.22 Type 2 diabetes mellitus with diabetic chronic kidney disease; R51.9 Headache, unspecified; D50.9 Iron deficiency anemia, unspecified; R42 Dizziness and giddiness; K08.89 Other specified disorders of teeth and supporting structures; D63.1 Anemia in chronic kidney disease; I25.10 Atherosclerotic heart disease of native coronary artery without angina pectoris; I16.0 Hypertensive urgency; E78.5 Hyperlipidemia, unspecified; M79.662 Pain in left lower leg; M79.661 Pain in right lower leg; R00.0 Tachycardia, unspecified
CPT/HCPCS: 0241U-QW; 36415; 36430; 70450-TC; 70486-TC; 70490-TC; 71045-TC-FY; 76775-TC; 80048; 80053; 80061; 81003; 82550; 82728; 82962; 83036; 83540; 83550; 83735; 84100; 84443; 84466; 84484; 85025; 85027; 85045; 85610; 85651; 85730; 86140; 86850; 86900; 86901; 86922; 87086; 88305-TC; 93005; 93010; 93306-TC; 93925-TC; 93970-TC; 97116-GP; 97161-GP; 99285-25; G0378; J0131; J1644; P9038; P9058

== ENCOUNTER 2024-09-13 11:53 | Observation (INO) | payer OTHER ==
[2024-09-13 14:16] LABS: HEMATOCRIT 21.4 % (35.4-49); MCH 28.3 pg (25.7-33.7); MCHC 32.4 g/dl (32.0-35.9); MEAN CELL VOLUME 87.3 fl (80-96); MEAN PLT VOLUME 9.1 fl (7.5-11.1); PLATELET COUNT 224 10^3/uL (134-434); RBC 2.45 M/mm3 (4.00-5.60); RDW 15.8 % (11.9-15.9); WHITE BLOOD COUNT 9.7 K/mm3 (4.0-10.0)
[2024-09-13 14:22] LABS: HEMOGLOBIN 6.9 GM/dL (11.7-16.9)
[2024-09-13 14:28] LABS: POTASSIUM 5.1 mmol/L (3.5-5.1)
[2024-09-13 14:31] LABS: CALCIUM 9.2 mg/dL (8.5-10.1)
[2024-09-13 14:32] LABS: ALBUMIN 3.2 g/dl (3.4-5.0); BLOOD UREA NITROGEN 57.2 mg/dL (7-18)
[2024-09-13 14:36] LABS: CREATININE 3.2 mg/dL (0.55-1.3)
[2024-09-13 14:37] LABS: BILIRUBIN,TOTAL 0.3 mg/dL (0.2-1)
[2024-09-13 15:17] LABS: ANISOCYTOSIS 1+; MACROCYTOSIS 0
[2024-09-13 15:19] LABS: PLATELET ESTIMATE ADEQUATE
[2024-09-13 15:40] LABS: HIV INTERPRETATION NEGATIVE (NEGATIVE)
[2024-09-13 16:50] LABS: N-TERMINAL BNP 1682.3 pg/ml (5-450)
[2024-09-13] MEDS: FUROSEMIDE 40 MG/4 ML INJECTABLE VIAL IVPUSH ONE (17:07)
[2024-09-13] MEDS ORDERED: FUROSEMIDE 40 MG TABLET (FP) ONE (17:07)
[2024-09-13] MEDS: FUROSEMIDE 40 MG TABLET (FP) PO ONE (17:11)
[2024-09-13] MEDS ORDERED: INSULIN ASPART SLIDING SCALE (NOVOLOG) 1 VIAL SQ ONE (18:20)
[2024-09-13] MEDS: INSULIN (NOVOLOG) ASPART 100 UNITS/ML 10ML VIAL SQ SCH (18:26)
[2024-09-13 19:06] LABS: EPI CELLS 1 /uL (0-25.1); HYALINE CASTS 0 /uL (0-3.1); PH,URINE 7.5 (5.0-8.0); URINE APPEARANCE CLEAR; URINE BACTERIA 51 /uL (0-1359); URINE BILIRUBIN NEGATIVE (NEGATIVE); URINE COLOR YELLOW; URINE GLUCOSE (UA) TRACE (NEGATIVE); URINE KETONE NEGATIVE (NEGATIVE); URINE LEUK ESTERASE NEGATIVE (NEGATIVE); URINE NITRITE NEGATIVE (NEGATIVE); URINE PROTEIN 3+ (NEGATIVE); URINE RBC 10 /uL (0-23.9); URINE UROBILINOGEN 0.2 mg/dL (0.2-1.0); URINE WBC 16 /uL (0-25.8)
[2024-09-13] MEDS: ATORVASTATIN CA 20 MG TABLET (FP) PO SCH (21:29)
[2024-09-13] MEDS: LABETALOL HCL 200 MG TABLET (FP) PO SCH (21:30)
[2024-09-13] MEDS: NIFEdipine E.R 60 MG TABLET PO SCH (21:30)
[2024-09-13] MEDS: DOCUSATE SODIUM 100 MG CAPSULE (FP) PO SCH (21:30)
[2024-09-13] MEDS: INSULIN (LEVEMIR) 100 UNITS/ML UNITS SQ SCH (21:30)
[2024-09-14 08:41] LABS: BASO % 0.6 % (0-2.0); EOS % 1.9 % (0-4.5); HEMATOCRIT 23.1 % (35.4-49); HEMOGLOBIN 7.7 GM/dL (11.7-16.9); LYMPH % 8.6 % (8-40); MCH 28.7 pg (25.7-33.7); MCHC 33.5 g/dl (32.0-35.9); MEAN CELL VOLUME 85.6 fl (80-96); MEAN PLT VOLUME 8.9 fl (7.5-11.1); MONO % 10.7 % (3.8-10.2); NEUT % 78.2 % (42.8-82.8); PLATELET COUNT 219 10^3/uL (134-434); RBC 2.69 M/mm3 (4.00-5.60); RDW 15.3 % (11.9-15.9); WHITE BLOOD COUNT 7.3 K/mm3 (4.0-10.0)
[2024-09-14 08:50] LABS: CALCIUM 8.8 mg/dL (8.5-10.1)
[2024-09-14 08:52] LABS: MAGNESIUM 2.3 mg/dL (1.8-2.4)
[2024-09-14 08:55] LABS: CREATININE 2.9 mg/dL (0.55-1.3); PHOSPHOROUS 5.2 mg/dL (2.5-4.9)
[2024-09-14 08:56] LABS: BILIRUBIN,TOTAL 0.3 mg/dL (0.2-1); TOT PROT 5.7 g/dl (6.4-8.2)
[2024-09-14] MEDS: FUROSEMIDE 40 MG/4 ML INJECTABLE VIAL IVPUSH SCH (10:37)
[2024-09-14 16:29] VITALS: BMI 31.1
[2024-09-14] MEDS ORDERED: INSULIN ASPART SLIDING SCALE (NOVOLOG) 1 VIAL SQ ONE (21:02)
[2024-09-15 07:27] VITALS: TEMP 96.4
[2024-09-15 08:40] LABS: POTASSIUM 4.4 mmol/L (3.5-5.1)
[2024-09-15 08:43] LABS: BLOOD UREA NITROGEN 57.4 mg/dL (7-18); CALCIUM 8.4 mg/dL (8.5-10.1)
[2024-09-15 08:48] LABS: CREATININE 3.1 mg/dL (0.55-1.3)
[2024-09-15 09:03] LABS: HEMATOCRIT 22.1 % (35.4-49); HEMOGLOBIN 7.6 GM/dL (11.7-16.9); MCH 29.5 pg (25.7-33.7); MCHC 34.4 g/dl (32.0-35.9); MEAN CELL VOLUME 85.7 fl (80-96); PLATELET COUNT 227 10^3/uL (134-434); RBC 2.58 M/mm3 (4.00-5.60); WHITE BLOOD COUNT 8.8 K/mm3 (4.0-10.0)
[2024-09-15 10:15] VITALS: BP 129/80; PULSE 70; RESP 18
== END 2024-09-15 13:29 | disposition home or self-care (01) ==
LOC: JER 11:53 → JERBED 15:01 → J7W 19:42 → JERBED 23:00 → J7W 23:02
PROVIDERS: ADMIT Internal Medicine; ATTEND Internal Medicine
PROC: 3E033GC Introduction of Other Therapeutic Substance into Peripheral Vein, Percutaneous Approach (ICD-10-PCS; principal; 2024-09-13)
PROC: 3E013VG Introduction of Insulin into Subcutaneous Tissue, Percutaneous Approach (ICD-10-PCS; 2024-09-13)
PROC: 30233N1 Transfusion of Nonautologous Red Blood Cells into Peripheral Vein, Percutaneous Approach (ICD-10-PCS; 2024-09-13)
DX: D50.9 Iron deficiency anemia, unspecified (principal); I50.30 Unspecified diastolic (congestive) heart failure; E11.22 Type 2 diabetes mellitus with diabetic chronic kidney disease; I11.0 Hypertensive heart disease with heart failure; I13.0 Hypertensive heart and chronic kidney disease with heart failure and stage 1 through stage 4 chronic kidney disease, or unspecified chronic kidney disease; N18.9 Chronic kidney disease, unspecified
CPT/HCPCS: 36415; 36430; 71045-TC-FY; 80048; 80053; 81003; 82272; 82728; 82962; 83540; 83550; 83735; 83880; 84100; 84484; 85025; 85027; 85045; 86803; 86850; 86900; 86901; 86922; 87389; 93005; 93010; 96372; 96374; 97116-GP; 97162-GP; 99285-25; G0378; P9058

== ENCOUNTER 2024-10-18 10:58 | Inpatient (IN) | payer OTHER ==
[2024-10-18 11:36] VITALS: BMI 31.3
[2024-10-18 12:37] LABS: BASO % 0.8 % (0-2.0); EOS % 2.4 % (0-4.5); HEMATOCRIT 22.9 % (35.4-49); HEMOGLOBIN 7.3 GM/dL (11.7-16.9); LYMPH % 6.4 % (8-40); MCH 27.5 pg (25.7-33.7); MCHC 31.7 g/dl (32.0-35.9); MEAN CELL VOLUME 86.9 fl (80-96); MEAN PLT VOLUME 9.3 fl (7.5-11.1); MONO % 9.6 % (3.8-10.2); NEUT % 80.8 % (42.8-82.8); PLATELET COUNT 223 10^3/uL (134-434); RBC 2.63 M/mm3 (4.00-5.60); RDW 16.8 % (11.9-15.9); WHITE BLOOD COUNT 6.3 K/mm3 (4.0-10.0)
[2024-10-18 13:01] LABS: CALCIUM 9.4 mg/dL (8.5-10.1)
[2024-10-18 13:02] LABS: ALBUMIN 3.3 g/dl (3.4-5.0); BLOOD UREA NITROGEN 48.2 mg/dL (7-18)
[2024-10-18 13:05] LABS: BILIRUBIN,TOTAL 0.3 mg/dL (0.2-1); CREATININE 3.2 mg/dL (0.55-1.3); TOT PROT 6.7 g/dl (6.4-8.2)
[2024-10-18 13:08] LABS: N-TERMINAL BNP 1508.3 pg/ml (5-450)
[2024-10-18 13:16] LABS: INR 1.05 (0.83-1.09); PROTHROMBIN TIME (PATIENT) 11.9 SEC (9.7-13.0)
[2024-10-18] MEDS ORDERED: FUROSEMIDE 40 MG/4 ML INJECTABLE VIAL ONE (13:52)
[2024-10-18] MEDS: FUROSEMIDE 40 MG/4 ML INJECTABLE VIAL IVPUSH ONE (13:56)
[2024-10-18 14:43] LABS: EPI CELLS 2 /uL (0-25.1); HYALINE CASTS 0 /uL (0-3.1); PH,URINE 7.5 (5.0-8.0); URINE APPEARANCE CLEAR; URINE BACTERIA 16 /uL (0-1359); URINE BILIRUBIN NEGATIVE (NEGATIVE); URINE COLOR YELLOW; URINE GLUCOSE (UA) TRACE (NEGATIVE); URINE KETONE NEGATIVE (NEGATIVE); URINE LEUK ESTERASE NEGATIVE (NEGATIVE); URINE NITRITE NEGATIVE (NEGATIVE); URINE PROTEIN 3+ (NEGATIVE); URINE RBC 5 /uL (0-23.9); URINE UROBILINOGEN 0.2 mg/dL (0.2-1.0); URINE WBC 12 /uL (0-25.8)
[2024-10-18 16:23] LABS: HIV INTERPRETATION NEGATIVE (NEGATIVE)
[2024-10-18] MEDS: INSULIN ASPART SLIDING SCALE (NOVOLOG) 1 VIAL SQ SCH (19:04)
[2024-10-18] MEDS: LABETALOL HCL 200 MG TABLET (FP) PO SCH (22:35)
[2024-10-18] MEDS: NIFEdipine E.R 60 MG TABLET PO SCH (22:35)
[2024-10-18] MEDS: ATORVASTATIN CA 20 MG TABLET (FP) PO SCH (22:35)
[2024-10-19] MEDS: FUROSEMIDE 40 MG/4 ML INJECTABLE VIAL IVPUSH SCH (07:08)
[2024-10-19 08:39] LABS: POTASSIUM 4.1 mmol/L (3.5-5.1)
[2024-10-19 08:51] LABS: ALBUMIN 3.1 g/dl (3.4-5.0); BLOOD UREA NITROGEN 47.3 mg/dL (7-18); MAGNESIUM 2.1 mg/dL (1.8-2.4)
[2024-10-19 08:52] LABS: CREATININE 3.2 mg/dL (0.55-1.3); PHOSPHOROUS 4.8 mg/dL (2.5-4.9)
[2024-10-19 08:53] LABS: BILIRUBIN,TOTAL 0.3 mg/dL (0.2-1)
[2024-10-19 08:54] LABS: TOT PROT 6.4 g/dl (6.4-8.2)
[2024-10-19 09:08] LABS: HEMATOCRIT 22.5 % (35.4-49); HEMOGLOBIN 7.4 GM/dL (11.7-16.9); MCH 28.2 pg (25.7-33.7); MCHC 32.8 g/dl (32.0-35.9); MEAN CELL VOLUME 86.1 fl (80-96); MEAN PLT VOLUME 8.9 fl (7.5-11.1); PLATELET COUNT 223 10^3/uL (134-434); RBC 2.61 M/mm3 (4.00-5.60); RDW 16.9 % (11.9-15.9); WHITE BLOOD COUNT 5.1 K/mm3 (4.0-10.0)
[2024-10-19] MEDS: HEPARIN NA (PORCINE) 5,000 UNITS/ML 1ML VIAL SQ SCH (21:36)
[2024-10-20 08:11] LABS: BASO % 0.8 % (0-2.0); EOS % 4.1 % (0-4.5); HEMATOCRIT 19.9 % (35.4-49); LYMPH % 12.2 % (8-40); MCH 28.3 pg (25.7-33.7); MCHC 32.5 g/dl (32.0-35.9); MEAN PLT VOLUME 9.1 fl (7.5-11.1); MONO % 14.8 % (3.8-10.2); NEUT % 68.1 % (42.8-82.8); PLATELET COUNT 212 10^3/uL (134-434); RBC 2.29 M/mm3 (4.00-5.60); RDW 16.4 % (11.9-15.9); WHITE BLOOD COUNT 5.6 K/mm3 (4.0-10.0)
[2024-10-20 08:25] LABS: HEMOGLOBIN 6.5 GM/dL (11.7-16.9)
[2024-10-20 08:27] LABS: POTASSIUM 4.2 mmol/L (3.5-5.1)
[2024-10-20 08:44] LABS: BLOOD UREA NITROGEN 48.7 mg/dL (7-18); CALCIUM 8.5 mg/dL (8.5-10.1); MAGNESIUM 2.2 mg/dL (1.8-2.4)
[2024-10-20 08:47] LABS: CREATININE 3.5 mg/dL (0.55-1.3); PHOSPHOROUS 4.8 mg/dL (2.5-4.9)
[2024-10-20 08:49] LABS: BILIRUBIN,TOTAL 0.2 mg/dL (0.2-1)
[2024-10-20 15:11] LABS: HEMATOCRIT 24.2 % (35.4-49); HEMOGLOBIN 8.3 GM/dL (11.7-16.9); MCH 29.1 pg (25.7-33.7); MCHC 34.2 g/dl (32.0-35.9); MEAN CELL VOLUME 85.1 fl (80-96); MEAN PLT VOLUME 8.7 fl (7.5-11.1); PLATELET COUNT 225 10^3/uL (134-434); RBC 2.85 M/mm3 (4.00-5.60); RDW 16.7 % (11.9-15.9); WHITE BLOOD COUNT 6.2 K/mm3 (4.0-10.0)
[2024-10-20 20:11] LABS: HEMATOCRIT 23.8 % (35.4-49); HEMOGLOBIN 7.8 GM/dL (11.7-16.9); MCH 28.1 pg (25.7-33.7); MCHC 32.8 g/dl (32.0-35.9); MEAN CELL VOLUME 85.7 fl (80-96); PLATELET COUNT 215 10^3/uL (134-434); RBC 2.77 M/mm3 (4.00-5.60); RDW 16.4 % (11.9-15.9); WHITE BLOOD COUNT 5.9 K/mm3 (4.0-10.0)
[2024-10-21 08:26] LABS: BASO % 0.9 % (0-2.0); EOS % 4.1 % (0-4.5); HEMATOCRIT 22.6 % (35.4-49); HEMOGLOBIN 7.4 GM/dL (11.7-16.9); LYMPH % 10.1 % (8-40); MCH 28.2 pg (25.7-33.7); MCHC 32.8 g/dl (32.0-35.9); MEAN CELL VOLUME 85.9 fl (80-96); MONO % 12.4 % (3.8-10.2); NEUT % 72.5 % (42.8-82.8); PLATELET COUNT 204 10^3/uL (134-434); RBC 2.63 M/mm3 (4.00-5.60); RDW 16.5 % (11.9-15.9); WHITE BLOOD COUNT 5.7 K/mm3 (4.0-10.0)
[2024-10-21 08:47] LABS: POTASSIUM 4.3 mmol/L (3.5-5.1)
[2024-10-21 08:56] LABS: CALCIUM 8.7 mg/dL (8.5-10.1)
[2024-10-21 08:57] LABS: BLOOD UREA NITROGEN 50.3 mg/dL (7-18); MAGNESIUM 2.1 mg/dL (1.8-2.4)
[2024-10-21 09:00] LABS: CREATININE 3.6 mg/dL (0.55-1.3); PHOSPHOROUS 4.6 mg/dL (2.5-4.9)
[2024-10-21 09:01] LABS: BILIRUBIN,TOTAL 0.3 mg/dL (0.2-1); TOT PROT 6.2 g/dl (6.4-8.2)
[2024-10-22] MEDS ORDERED: ACETAMINOPHEN 325 MG TABLET (FP) PO PRN (09:03)
[2024-10-22] MEDS: FUROSEMIDE 40 MG/4 ML INJECTABLE VIAL IVPUSH SCH (09:31)
[2024-10-22 21:40] LABS: HEMATOCRIT 25.8 % (35.4-49); HEMOGLOBIN 8.4 GM/dL (11.7-16.9); MCH 28.9 pg (25.7-33.7); MCHC 32.6 g/dl (32.0-35.9); MEAN CELL VOLUME 88.5 fl (80-96); PLATELET COUNT 205 10^3/uL (134-434); RBC 2.92 M/mm3 (4.00-5.60); RDW 17.6 % (11.9-15.9); WHITE BLOOD COUNT 6.4 K/mm3 (4.0-10.0)
[2024-10-23 04:00] VITALS: RESP 18
[2024-10-23] MEDS: FUROSEMIDE 40 MG TABLET (FP) PO SCH (10:09)
[2024-10-23 14:18] VITALS: BP 158/60; PULSE 72; TEMP 98.2
[2024-10-23] MEDS ORDERED: HEPARIN NA (PORCINE) 5,000 UNITS/ML 1ML VIAL IVPUSH PRN ×2 (19:25)
[2024-10-23] MEDS ORDERED: HEPARIN INFUSION - 25,000 UNITS/500 ML INFUS.BAG IVPB SCH (19:30)
== END 2024-10-23 18:07 | disposition home or self-care (01) | DRG 291 ==
LOC: JER 10:58 → JERBED 13:56 → J4W 20:47
PROVIDERS: ADMIT Internal Medicine; ATTEND Internal Medicine
PROC: 30233N1 Transfusion of Nonautologous Red Blood Cells into Peripheral Vein, Percutaneous Approach (ICD-10-PCS; principal; 2024-10-20)
DX: I13.0 Hypertensive heart and chronic kidney disease with heart failure and stage 1 through stage 4 chronic kidney disease, or unspecified chronic kidney disease (principal); I50.33 Acute on chronic diastolic (congestive) heart failure; N17.9 Acute kidney failure, unspecified; E11.22 Type 2 diabetes mellitus with diabetic chronic kidney disease; N18.9 Chronic kidney disease, unspecified; I25.10 Atherosclerotic heart disease of native coronary artery without angina pectoris; E78.5 Hyperlipidemia, unspecified; R80.9 Proteinuria, unspecified; D50.9 Iron deficiency anemia, unspecified
CPT/HCPCS: 0241U-QW; 36415; 36430; 71045-TC-FY; 73560-TC-RT-FY; 80053; 81003; 82962; 83735; 83880; 84100; 84484; 85025; 85027; 85610; 85730; 86803; 86850; 86900; 86901; 86922; 87086; 87389; 93005; 93010; 93971-TC; 94660; 94761; 97116-GP; 97162-GP; 99285-25; J1644; P9038; P9058

== ENCOUNTER 2024-11-28 15:35 | Inpatient (IN) | payer OTHER ==
[2024-11-28 16:03] VITALS: BMI 29.7
[2024-11-28] MEDS ORDERED: NITROGLYCERIN 2% OINTMENT - 1GM PACKET TD ONE (16:52)
[2024-11-28] MEDS: NITROGLYCERIN 2% OINTMENT - 1GM PACKET TD ONE (16:59)
[2024-11-28 17:12] LABS: HEMATOCRIT 18.3 % (35.4-49); MCH 27.6 pg (25.7-33.7); MCHC 32.1 g/dl (32.0-35.9); MEAN CELL VOLUME 85.8 fl (80-96); MEAN PLT VOLUME 10.4 fl (7.5-11.1); PLATELET COUNT 178 10^3/uL (134-434); RBC 2.13 M/mm3 (4.00-5.60); RDW 18.1 % (11.9-15.9); WHITE BLOOD COUNT 12.6 K/mm3 (4.0-10.0)
[2024-11-28 17:24] LABS: HEMOGLOBIN 5.9 GM/dL (11.7-16.9)
[2024-11-28 17:33] LABS: VENOUS BASE EXCESS -5.3 mmol/L (-2-2); VENOUS O2 SATURATION 83.8 % (70-80); VENOUS PCO2 34.3 mmHg (38-52); VENOUS PH 7.371 (7.310-7.410)
[2024-11-28 17:38] LABS: CHLORIDE 100 mmol/L (98-107); SODIUM 130 mmol/L (136-145)
[2024-11-28 17:39] LABS: ALBUMIN 3.3 g/dl (3.4-5.0); ANION GAP 7 mmol/L (4-13); CALCIUM 8.9 mg/dL (8.5-10.1); CO2 22 mmol/L (21-32); POTASSIUM 7.5 mmol/L (3.5-5.1)
[2024-11-28 17:40] LABS: GLUCOSE,RANDOM 450 mg/dL (74-106)
[2024-11-28 17:42] LABS: CREATININE 4.7 mg/dL (0.55-1.3); SGOT/AST 19 U/L (15-37); SGPT/ALT 16 U/L (13-61)
[2024-11-28 17:44] LABS: BILIRUBIN,TOTAL 0.3 mg/dL (0.2-1); TOT PROT 6.8 g/dl (6.4-8.2)
[2024-11-28 17:45] LABS: ALK PHOS 77 U/L (45-117)
[2024-11-28] MEDS ORDERED: ALBUTEROL SO4 0.083% IH SOL 2.5 MG/3 ML VIAL.NEB. NEB ONE (17:49)
[2024-11-28] MEDS ORDERED: CALCIUM GLUCONATE 10% - 1,000 MG/10 ML VIAL ONE (17:49)
[2024-11-28] MEDS ORDERED: INSULIN REGULAR HUMAN 100 UNITS/ML *VIAL ONE (17:53)
[2024-11-28] MEDS ORDERED: SODIUM BICARBONATE 8.4% 50 MEQ/50 ML DISP.SYRIN ONE (17:59)
[2024-11-28 18:15] LABS: INR 1.11 (0.83-1.09); PROTHROMBIN TIME (PATIENT) 12.7 SEC (9.7-13.0)
[2024-11-28] MEDS: INSULIN REGULAR HUMAN 100 UNITS/ML *VIAL IVPUSH ONE ×2 (18:15→21:39)
[2024-11-28] MEDS: INSULIN REGULAR HUMAN 100 UNITS/ML *VIAL SQ ONE (18:15)
[2024-11-28] MEDS: CALCIUM GLUCONATE 10% - 1,000 MG/10 ML VIAL IVPUSH ONE (18:15)
[2024-11-28] MEDS: ALBUTEROL SO4 0.083% IH SOL 2.5 MG/3 ML VIAL.NEB. NEB SCH (18:16)
[2024-11-28] MEDS: SODIUM BICARBONATE 8.4% 50 MEQ/50 ML DISP.SYRIN IVPUSH ONE ×2 (18:16→18:47)
[2024-11-28] MEDS: ALBUTEROL SO4 0.083% IH SOL 2.5 MG/3 ML VIAL.NEB. NEB ONE (18:16)
[2024-11-28] MEDS: FUROSEMIDE 40 MG/4 ML INJECTABLE VIAL IVPUSH ONE ×2 (18:16→19:04)
[2024-11-28 18:18] LABS: ACTIVATED PTT 28.8 SECONDS (25.2-36.5)
[2024-11-28] MEDS: SODIUM CHLORIDE 500 ML IV STA (18:47)
[2024-11-28 19:31] LABS: ANISOCYTOSIS 3+; MACROCYTOSIS 0; OVALOCYTE 1+
[2024-11-28 20:47] LABS: CHLORIDE 101 mmol/L (98-107); SODIUM 132 mmol/L (136-145)
[2024-11-28 20:49] LABS: CALCIUM 9.1 mg/dL (8.5-10.1)
[2024-11-28 20:50] LABS: ANION GAP 11 mmol/L (4-13); CO2 19 mmol/L (21-32); MAGNESIUM 2.3 mg/dL (1.8-2.4)
[2024-11-28 20:53] LABS: CREATININE 4.6 mg/dL (0.55-1.3)
[2024-11-28 20:57] LABS: BLOOD UREA NITROGEN 117.4 mg/dL (7-18); GLUCOSE,RANDOM 418 mg/dL (74-106)
[2024-11-28] MEDS: DEXTROSE 50%-WATER 25 GM/50 ML DISP.SYRIN IVPUSH ONE (21:39)
[2024-11-28] MEDS ORDERED: ATORVASTATIN CA 20 MG TABLET (FP) ONE (22:11)
[2024-11-28] MEDS ORDERED: LABETALOL HCL 200 MG TABLET (FP) ONE (22:11)
[2024-11-28] MEDS ORDERED: NIFEdipine E.R 60 MG TABLET PO ONE (22:11)
[2024-11-28] MEDS: NIFEdipine E.R 60 MG TABLET PO SCH (22:18)
[2024-11-28] MEDS: LABETALOL HCL 200 MG TABLET (FP) PO SCH (22:18)
[2024-11-28] MEDS: ATORVASTATIN CA 20 MG TABLET (FP) PO SCH (22:18)
[2024-11-28] MEDS ORDERED: HEPARIN NA (PORCINE) 5,000 UNITS/ML 1ML VIAL ONE (22:23)
[2024-11-28] MEDS: INSULIN (LEVEMIR) 100 UNITS/ML UNITS SQ SCH (22:32)
[2024-11-28] MEDS: BUMETANIDE INJECTION 1 MG/4 ML VIAL IVPUSH ONE (22:47)
[2024-11-28] MEDS: HEPARIN NA (PORCINE) 5,000 UNITS/ML 1ML VIAL SQ SCH (23:00)
[2024-11-28] MEDS: INSULIN ASPART SLIDING SCALE (NOVOLOG) 1 VIAL SQ SCH (23:11)
[2024-11-28 23:37] LABS: PH,URINE 5.5 (5.0-8.0); URINE APPEARANCE CLEAR; URINE BILIRUBIN NEGATIVE (NEGATIVE); URINE COLOR YELLOW; URINE GLUCOSE (UA) 1+ (NEGATIVE); URINE KETONE NEGATIVE (NEGATIVE); URINE LEUK ESTERASE NEGATIVE (NEGATIVE); URINE NITRITE NEGATIVE (NEGATIVE); URINE PROTEIN 3+ (NEGATIVE); URINE UROBILINOGEN 0.2 mg/dL (0.2-1.0)
[2024-11-28 23:55] LABS: EPI CELLS 11.7 /uL (0-25.1); HYALINE CASTS 0.95 /uL (0-3.1); URINE BACTERIA 56.6 /uL (0-1359); URINE RBC 30.5 /uL (0-23.9); URINE WBC 21.6 /uL (0-25.8)
[2024-11-29 02:49] LABS: CHLORIDE 103 mmol/L (98-107); SODIUM 136 mmol/L (136-145)
[2024-11-29 02:51] LABS: ANION GAP 10 mmol/L (4-13); CALCIUM 9.2 mg/dL (8.5-10.1); CO2 23 mmol/L (21-32); GLUCOSE,RANDOM 273 mg/dL (74-106)
[2024-11-29 02:52] LABS: BLOOD UREA NITROGEN 114.9 mg/dL (7-18)
[2024-11-29 02:54] LABS: CREATININE 4.5 mg/dL (0.55-1.3)
[2024-11-29] MEDS ORDERED: HEPARIN NA (PORCINE) 5,000 UNITS/ML 1ML VIAL ONE ×3 (05:55→22:41)
[2024-11-29] MEDS: BUMETANIDE INJECTION 1 MG/4 ML VIAL IVPUSH ONE (06:11)
[2024-11-29 07:58] LABS: BASO % 0.4 % (0-2.0); EOS % 0.8 % (0-4.5); HEMATOCRIT 23.4 % (35.4-49); LYMPH % 2.6 % (8-40); MCH 28.6 pg (25.7-33.7); MCHC 34.1 g/dl (32.0-35.9); MEAN CELL VOLUME 83.8 fl (80-96); MEAN PLT VOLUME 10.3 fl (7.5-11.1); MONO % 10.9 % (3.8-10.2); NEUT % 85.3 % (42.8-82.8); PLATELET COUNT 169 10^3/uL (134-434); RBC 2.79 M/mm3 (4.00-5.60); RDW 16.3 % (11.9-15.9); WHITE BLOOD COUNT 10.9 K/mm3 (4.0-10.0)
[2024-11-29 08:14] LABS: INR 1.12 (0.83-1.09); PROTHROMBIN TIME (PATIENT) 12.6 SEC (9.7-13.0)
[2024-11-29 08:17] LABS: CHLORIDE 104 mmol/L (98-107); POTASSIUM 4.7 mmol/L (3.5-5.1); SODIUM 138 mmol/L (136-145)
[2024-11-29 08:22] LABS: ANION GAP 9 mmol/L (4-13); CO2 25 mmol/L (21-32); GLUCOSE,RANDOM 136 mg/dL (74-106); MAGNESIUM 2.6 mg/dL (1.8-2.4)
[2024-11-29 08:25] LABS: CALCIUM 9.3 mg/dL (8.5-10.1); CREATININE 4.5 mg/dL (0.55-1.3)
[2024-11-29 08:31] LABS: BLOOD UREA NITROGEN 112.2 mg/dL (7-18)
[2024-11-29] MEDS ORDERED: INSULIN ASPART SLIDING SCALE (NOVOLOG) 1 VIAL SQ ONE ×2 (09:10→13:38)
[2024-11-29] MEDS ORDERED: ASPIRIN COATED 81 MG TABLET.EC ONE (09:10)
[2024-11-29] MEDS ORDERED: PANTOPRAZOLE SODIUM 40 MG/100 ML BAG IVPB ONE (09:10)
[2024-11-29] MEDS: ASPIRIN COATED 81 MG TABLET.EC PO SCH (09:22)
[2024-11-29] MEDS: PANTOPRAZOLE SODIUM 40 MG VIAL IVPUSH SCH (09:22)
[2024-11-29] MEDS ORDERED: NIFEdipine E.R 60 MG TABLET PO ONE (10:12)
[2024-11-29] MEDS ORDERED: LABETALOL HCL 200 MG TABLET (FP) ONE (10:12)
[2024-11-29] MEDS ORDERED: INSULIN (LEVEMIR) 100 UNITS/ML UNITS SQ ONE ×2 (10:13→10:24)
[2024-11-29] MEDS ORDERED: FUROSEMIDE 40 MG/4 ML INJECTABLE VIAL ONE (14:18)
[2024-11-29] MEDS: FUROSEMIDE 40 MG/4 ML INJECTABLE VIAL IVPUSH SCH (14:33)
[2024-11-29] MEDS: LABETALOL HCL 200 MG TABLET (FP) PO SCH (22:51)
[2024-11-30] MEDS: INSULIN (LEVEMIR) 100 UNITS/ML UNITS SQ SCH (06:06)
[2024-11-30 07:36] LABS: BASO % 0.3 % (0-2.0); EOS % 1.1 % (0-4.5); HEMOGLOBIN 7.6 GM/dL (11.7-16.9); MEAN CELL VOLUME 84.8 fl (80-96); MEAN PLT VOLUME 10.1 fl (7.5-11.1); MONO % 10.2 % (3.8-10.2); NEUT % 84.4 % (42.8-82.8); PLATELET COUNT 195 10^3/uL (134-434); RBC 2.71 M/mm3 (4.00-5.60); RDW 16.7 % (11.9-15.9)
[2024-11-30 07:54] LABS: CHLORIDE 103 mmol/L (98-107); POTASSIUM 4.2 mmol/L (3.5-5.1); SODIUM 139 mmol/L (136-145)
[2024-11-30 08:01] LABS: CALCIUM 9.1 mg/dL (8.5-10.1)
[2024-11-30 08:02] LABS: ANION GAP 11 mmol/L (4-13); CO2 25 mmol/L (21-32); GLUCOSE,RANDOM 185 mg/dL (74-106); MAGNESIUM 2.3 mg/dL (1.8-2.4); SGOT/AST 16 U/L (15-37); SGPT/ALT 13 U/L (13-61)
[2024-11-30 08:03] LABS: BILIRUBIN,TOTAL 0.4 mg/dL (0.2-1); TOT PROT 6.4 g/dl (6.4-8.2)
[2024-11-30 08:04] LABS: ALK PHOS 68 U/L (45-117)
[2024-11-30 08:05] LABS: CREATININE 4.5 mg/dL (0.55-1.3); PHOSPHOROUS 4.5 mg/dL (2.5-4.9)
[2024-11-30 08:09] LABS: BLOOD UREA NITROGEN 109.8 mg/dL (7-18)
[2024-11-30 10:00] LABS: ARTERIAL BLD GAS O2 SATURATION 91.3 % (95-98); ARTERIAL BLOOD GAS BASE EXCESS 2.1 mmol/L (-2-2); ARTERIAL BLOOD GAS PO2 62.1 mmHg (80-100); ARTERIAL BLOOD GAS pH 7.383 (7.350-7.450)
[2024-11-30 10:04] LABS: ALLENS TEST POSITIVE
[2024-11-30] MEDS: NIFEdipine E.R 60 MG TABLET PO SCH (11:45)
[2024-11-30] MEDS: PANTOPRAZOLE SODIUM 40 MG VIAL IVPUSH SCH (11:45)
[2024-11-30] MEDS: ASPIRIN 81 MG CHEWABLE TABLETS PO SCH (11:47)
[2024-11-30 12:14] LABS: ARTERIAL BLD GAS O2 SATURATION 93.5 % (95-98); ARTERIAL BLOOD GAS BASE EXCESS 1.6 mmol/L (-2-2); ARTERIAL BLOOD GAS PO2 70.6 mmHg (80-100); ARTERIAL BLOOD GAS pH 7.362 (7.350-7.450)
[2024-11-30 12:25] LABS: ALLENS TEST POSITIVE; VENT MODE S/T; VENT RATE 14
[2024-11-30] MEDS: INSULIN ASPART SLIDING SCALE (NOVOLOG) 1 VIAL SQ SCH (13:21)
[2024-11-30] MEDS: FUROSEMIDE 40 MG/4 ML INJECTABLE VIAL IVPUSH SCH (13:21)
[2024-11-30] MEDS: PIPERACILLIN/TAZOB 2.25 GM 2.25 GM/50 ML BAG IVPB SCH (14:23)
[2024-11-30] MEDS: HEPARIN NA (PORCINE) 5,000 UNITS/ML 1ML VIAL SQ SCH (14:24)
[2024-11-30] MEDS: MUPIROCIN 2% TOPICAL OINTMENT FOR DECOLONIZATION NS SCH ×2 (14:24→14:35)
[2024-11-30] MEDS: ASPIRIN COATED 81 MG TABLET.EC PO SCH (14:25)
[2024-11-30] MEDS: CHLORHEXIDINE GLUCONATE 4% CLEANSER FOR DECOLONIZATION TP SCH (14:35)
[2024-11-30] MEDS: PIPERACILLIN/TAZOB 2.25 GM 2.25 GM in DEXTROSE 5%-WATER - 50 ML IVPB ONE (14:36)
[2024-11-30] MEDS ORDERED: ATORVASTATIN CA 20 MG TABLET (FP) PO SCH (22:00)
[2024-11-30] MEDS ORDERED: CHLORHEXIDINE GLUCONATE 4% CLEANSER FOR DECOLONIZATION TP SCH (22:00)
[2024-11-30] MEDS: ATORVASTATIN CA 20 MG TABLET (FP) PO SCH (23:02)
[2024-12-01] MEDS: INSULIN (LEVEMIR) 100 UNITS/ML UNITS SQ SCH (06:34)
[2024-12-01 07:44] LABS: BASO % 0.6 % (0-2.0); EOS % 6.3 % (0-4.5); HEMATOCRIT 26.9 % (35.4-49); LYMPH % 5.3 % (8-40); MCHC 33.3 g/dl (32.0-35.9); MEAN CELL VOLUME 84.2 fl (80-96); MEAN PLT VOLUME 9.6 fl (7.5-11.1); NEUT % 77.8 % (42.8-82.8); PLATELET COUNT 235 10^3/uL (134-434); RBC 3.19 M/mm3 (4.00-5.60); WHITE BLOOD COUNT 9.7 K/mm3 (4.0-10.0)
[2024-12-01 07:52] LABS: HEMATOCRIT 26.3 % (35.4-49); MCH 28.5 pg (25.7-33.7); MCHC 34.1 g/dl (32.0-35.9); MEAN CELL VOLUME 83.5 fl (80-96); MEAN PLT VOLUME 9.4 fl (7.5-11.1); PLATELET COUNT 229 10^3/uL (134-434); RBC 3.15 M/mm3 (4.00-5.60); RDW 15.6 % (11.9-15.9); WHITE BLOOD COUNT 9.6 K/mm3 (4.0-10.0)
[2024-12-01 08:06] LABS: POTASSIUM 3.9 mmol/L (3.5-5.1)
[2024-12-01 08:14] LABS: BLOOD UREA NITROGEN 98.5 mg/dL (7-18)
[2024-12-01 08:17] LABS: CREATININE 4.3 mg/dL (0.55-1.3)
[2024-12-01 08:19] LABS: BILIRUBIN,TOTAL 0.5 mg/dL (0.2-1); TOT PROT 6.4 g/dl (6.4-8.2)
[2024-12-01] MEDS: guaiFENesin 200 MG/10 ML 10 ML UNIT-DOSE CUPS PO PRN (11:02)
[2024-12-01] MEDS: BISACODYL 5 MG TABLET.DR (FP) PO PRN (11:02)
[2024-12-01] MEDS: PIPERACILLIN/TAZOB 2.25 GM 2.25 GM/50 ML BAG IVPB SCH (11:03)
[2024-12-01] MEDS: LABETALOL HCL 200 MG TABLET (FP) PO SCH (14:24)
[2024-12-02 06:44] LABS: HEMATOCRIT 27.2 % (35.4-49); HEMOGLOBIN 9.2 GM/dL (11.7-16.9); MCH 28.6 pg (25.7-33.7); MCHC 33.9 g/dl (32.0-35.9); MEAN CELL VOLUME 84.4 fl (80-96); PLATELET COUNT 250 10^3/uL (134-434); RBC 3.22 M/mm3 (4.00-5.60); RDW 15.8 % (11.9-15.9); WHITE BLOOD COUNT 10.9 K/mm3 (4.0-10.0)
[2024-12-02 07:03] LABS: POTASSIUM 3.6 mmol/L (3.5-5.1)
[2024-12-02 07:05] LABS: CALCIUM 8.6 mg/dL (8.5-10.1)
[2024-12-02 07:06] LABS: ALBUMIN 2.9 g/dl (3.4-5.0); BLOOD UREA NITROGEN 85.7 mg/dL (7-18)
[2024-12-02 07:09] LABS: CREATININE 4.1 mg/dL (0.55-1.3)
[2024-12-02 07:11] LABS: BILIRUBIN,TOTAL 0.4 mg/dL (0.2-1); TOT PROT 6.4 g/dl (6.4-8.2)
[2024-12-03 07:37] LABS: BASO % 0.3 % (0-2.0); EOS % 8.6 % (0-4.5); HEMATOCRIT 27.7 % (35.4-49); HEMOGLOBIN 9.3 GM/dL (11.7-16.9); LYMPH % 7.3 % (8-40); MCH 28.1 pg (25.7-33.7); MCHC 33.5 g/dl (32.0-35.9); MEAN PLT VOLUME 9.1 fl (7.5-11.1); MONO % 11.8 % (3.8-10.2); PLATELET COUNT 256 10^3/uL (134-434); RDW 15.9 % (11.9-15.9); WHITE BLOOD COUNT 8.3 K/mm3 (4.0-10.0)
[2024-12-03 07:43] LABS: POTASSIUM 3.8 mmol/L (3.5-5.1)
[2024-12-03 08:08] LABS: ALBUMIN 2.9 g/dl (3.4-5.0); CALCIUM 8.6 mg/dL (8.5-10.1)
[2024-12-03 08:09] LABS: BLOOD UREA NITROGEN 83.7 mg/dL (7-18)
[2024-12-03 08:12] LABS: CREATININE 4.2 mg/dL (0.55-1.3); PHOSPHOROUS 4.3 mg/dL (2.5-4.9)
[2024-12-03 08:13] LABS: BILIRUBIN,TOTAL 0.4 mg/dL (0.2-1); TOT PROT 6.3 g/dl (6.4-8.2)
[2024-12-04 07:42] LABS: HEMOGLOBIN 9.5 GM/dL (11.7-16.9); MCH 29.1 pg (25.7-33.7); MCHC 35.1 g/dl (32.0-35.9); MEAN PLT VOLUME 8.9 fl (7.5-11.1); PLATELET COUNT 254 10^3/uL (134-434); RBC 3.26 M/mm3 (4.00-5.60); RDW 15.4 % (11.9-15.9); WHITE BLOOD COUNT 8.4 K/mm3 (4.0-10.0)
[2024-12-04 07:55] LABS: POTASSIUM 3.8 mmol/L (3.5-5.1)
[2024-12-04 08:04] LABS: BLOOD UREA NITROGEN 83.6 mg/dL (7-18)
[2024-12-04 08:05] LABS: CALCIUM 8.8 mg/dL (8.5-10.1)
[2024-12-04 08:08] LABS: CREATININE 4.3 mg/dL (0.55-1.3)
[2024-12-04] MEDS ORDERED: MELATONIN 5 MG TABLETS PO PRN (08:18)
[2024-12-04 15:03] VITALS: RESP 18
[2024-12-04 17:56] VITALS: BP 158/66; PULSE 65; TEMP 98
== END 2024-12-04 19:15 | disposition home or self-care (01) | DRG 291 ==
LOC: JER 15:35 → JERBED 19:59 → J4W 11-30 02:25
PROVIDERS: ADMIT Internal Medicine Pulmonary Disease; ATTEND Internal Medicine
PROC: 30233N1 Transfusion of Nonautologous Red Blood Cells into Peripheral Vein, Percutaneous Approach (ICD-10-PCS; principal; 2024-11-28)
DX: I13.2 Hypertensive heart and chronic kidney disease with heart failure and with stage 5 chronic kidney disease, or end stage renal disease (principal); I50.33 Acute on chronic diastolic (congestive) heart failure; J96.01 Acute respiratory failure with hypoxia; J96.02 Acute respiratory failure with hypercapnia; J81.0 Acute pulmonary edema; N17.9 Acute kidney failure, unspecified; I24.89 Other forms of acute ischemic heart disease; G93.49 Other encephalopathy; N18.9 Chronic kidney disease, unspecified; E11.22 Type 2 diabetes mellitus with diabetic chronic kidney disease; E78.5 Hyperlipidemia, unspecified; E87.5 Hyperkalemia; D50.9 Iron deficiency anemia, unspecified; R19.5 Other fecal abnormalities; R80.9 Proteinuria, unspecified
CPT/HCPCS: 0241U-QW; 36415; 36430; 36600; 71045-TC-FY; 76604; 76775-TC; 80048; 80053; 81003; 82010; 82272; 82436; 82533; 82570; 82803; 82962; 83036; 83735; 83880; 84100; 84133; 84156; 84300; 84439; 84443; 84484; 85025; 85027; 85045; 85610; 85730; 86376; 86707; 86708; 86800; 86850; 86900; 86901; 86922; 87340; 87350; 87517; 87522; 87633; 93005; 93010; 93306-TC; 93308; 94660; 94761; 97116-GP; 97161-GP; 99285-25; J1644; P9058

== ENCOUNTER 2025-01-31 06:29 | Day surgery (SDC) | payer OTHER ==
[2025-01-29 10:02] VITALS: BMI 29.0
[2025-01-31] MEDS ORDERED: LIDOCAINE HCL 1%, 10 MG/ML (20ML VIAL) ONE (07:15)
[2025-01-31] MEDS ORDERED: HEPARIN NA (PORCINE) 5,000 UNITS/ML 1ML VIAL ONE (07:16)
[2025-01-31] MEDS ORDERED: PAPAVERINE HCL 30 MG/1 ML 10 ML VIAL NR ONE (07:16)
[2025-01-31] MEDS: LIDOCAINE HCL 1%, 10 MG/ML (20ML VIAL) ID ONE ×2 (07:50→08:24)
[2025-01-31] MEDS: HEPARIN NA (PORCINE) 5,000 UNITS/ML 1ML VIAL SQ ONE ×2 (07:51→09:00)
[2025-01-31] MEDS: ceFAZolin SODIUM 1 GM VIAL IVPB ONE (08:11)
[2025-01-31] MEDS: LIDOCAINE HCL 1%, 10 MG/ML (20ML VIAL) NR ONE (08:24)
[2025-01-31] MEDS ORDERED: PROMETHAZINE HCL 25 MG/1 ML VIAL IVPB PRN (08:48)
[2025-01-31] MEDS ORDERED: ONDANSETRON 4 MG/2 ML VIAL IVPUSH PRN (08:48)
[2025-01-31] MEDS ORDERED: oxyCODONE HCL 5 MG TABLET PO PRN ×2 (08:48)
[2025-01-31] MEDS ORDERED: LACTATED RINGERS SOLUTION 1,000 ML IV SCH (09:00)
[2025-01-31] MEDS ORDERED: POVIDONE-IODINE OINTMENT 10% - 28.4 GM TUBE ONE (09:16)
[2025-01-31] MEDS: POVIDONE-IODINE OINTMENT 10% - 28.4 GM TUBE TP ONE (09:20)
[2025-01-31 11:43] VITALS: RESP 18
[2025-01-31 13:27] VITALS: BP 149/60; PULSE 57; TEMP 97.3
== END 2025-01-31 13:25 | disposition home or self-care (01) ==
LOC: JASU-SURG 06:29
PROVIDERS: ATTEND Surgery
PROC: 03180ZD Bypass Left Brachial Artery to Upper Arm Vein, Open Approach (ICD-10-PCS; principal; 2025-01-31 08:00)
DX: I12.9 Hypertensive chronic kidney disease with stage 1 through stage 4 chronic kidney disease, or unspecified chronic kidney disease (principal); E11.22 Type 2 diabetes mellitus with diabetic chronic kidney disease; N18.4 Chronic kidney disease, stage 4 (severe)
CPT/HCPCS: 94760; J1644